=== PATIENT | female | born 1950 | race Caucasian/White ===

== ENCOUNTER 2018-02-08 09:05 | Emergency (ER) | payer MEDICARE, BC ==
--- OUTSIDE RECORDS SUMMARY | 2018-02-08 09:27 | XMS REPORT ---
:1950 External Reference #:[id number] Author Organization [employer] Address [address] [place] [address] [place] [address] Phone [phone] Care Team Providers Name Role Phone Froy CASI Victor Primary Care Physician Unavailable Payers Type Date Identification Numbers Payment Provider Subscriber Medicare Primary Policy Number: [id number] Medicare Christopher Matias PayID: [id number] [address] [place] [address] Medigap Part B Effective: 2016 Policy Number: BS Facets Christopher Matias [id number] PayID: [id number] [address] [address] ARIEL Barrera [address] Medigap Part B Effective: 2014 Policy Number: BS Facets Christopher Matias [id number] Expires: 2015 PayID: [id number] [address] [address] ARIEL Barrera [address] Medigap Part B Effective: 2004 Policy Number: BS Of [place] Christopher Matias [id number] Expires: 2011 Group Number: [id number] [address] [address] Group Name: [id number] ARIEL Barrera [id number] PayID: [id number] Problems Date Description Provider Status Onset: 11/28/2011 Chest pain Watson Jenkins M.D. Active Onset: 11/28/2011 Electrocardiogram abnormal Watson Jenkins M.D. Active Onset: 11/28/2011 Benign essential hypertension Watson Jenkins M.D. Active Onset: 11/28/2011 Coronary atherosclerosis Watson Jenkins M.D. Active Onset: 09/10/2012 Prinzmetal angina Watson Jenkins M.D. Active Onset: 09/10/2012 Essential hypertension Watson Jenkins M.D. Active Onset: 09/10/2012 Left bundle branch block Watson Jenkins M.D. Active Onset: 01/11/2013 Mitral valve disorder Watson Jenkins M.D. Active Onset: 07/05/2013 Sinus node dysfunction Watson Jenkins M.D. Active Onset: 07/05/2013 Malaise and fatigue Watson Jenkins M.D. Active Onset: 07/05/2013 Aortic valve disorder Watson Jenkins M.D. Active Onset: 02/03/2015 Osteoarthritis of knee Nola Rolle M.D. Active Onset: 10/25/2015 Localized, primary osteoarthritis Nola Rolle M.D. Active Onset: 12/01/2015 Arthroplasty of knee Nola Rolle M.D. Active Family History Date Family Member(s) Problem(s) Comments : (age 66 Father due to OK 1st OK at 58, second Years) OK 66 yo Onset: (age 58 Father OK 1st Years) Mother Chronic Obstructive Pulmonary Disease (COPD) : (age 83 Mother due to COPD Years) Mother Hypertension Children 1 son, 1 daughter alive and well Siblings 3 brothers, 1 sister First Brother Atrial Fibrillation ablation Social History Type Date Description Comments Marital Status 3 Times Lives With Spouse Occupation Retired Occupation Nurse Cigarette Use Never Smoked Cigarettes ETOH Use Rarely consumes alcohol Smoking Patient has never smoked Recreational Drug Use Denies Drug Use Daily Caffeine 2 diet pepsi daily Exercise Type/Frequency Exercises regularly pool exercise Allergies, Adverse Reactions, Alerts Date Description Reaction Status Severity Comments 11/28/2011 Doxepin active hallucinations and nightmares 11/28/2011 contrast dye hives, trouble active IVP 21 yo. breathing 12/27/2015 Tramadol active Medications Medication Date Status Form Strength Qnty SIG Indications Ordering Provider Irbesartan 01/28 Active Tablets 75mg 30tab Take 1 tab Desi S. /2018 s by mouth Julio, daily N.P. Advair HFA 12/03 Active Aerosol 230-21mcg 16gm 2 puffs by R06.2 Desi S. /2018 /Act mouth Foster, twice N.P. daily Fluticasone 11/21 Active Suspension 50mcg/Act 1unit 2 sprays Desi S. Propionate Nasal s per Foster, [place] 24- Hour nostril N.P. daily Ranitidine HCL 07/26 Active Capsules 150mg 30cap 1 tab by K21.9 Rachele s mouth bid MD Patrh Celexa 12/16 Active Tablets 10mg 1 by mouth every day Pramipexole 12/16 Active Tablets 1mg take 1.5 Unknown Dihydrochloride tablet by mouth 2 hrs before bedtime Amoxicillin 10/02 Active Tablets 500mg 4tabs take 4 tabs 1 F. hour prior Mauser, to dental M.DAlan procedure/ appointmen t. Aspir-81 03/[address] 81mg 1 by mouth Watson every day F. PM Pam Jenkins Furosemide 01/24 Active Tablets 20mg 90tab 1 by mouth I48.91 s as needed F. Pam Jenkins Metoprolol 10/12 Active Tablets ER 25mg 90tab 1 tab by Watson Succinate ER 24HR s mouth in F. the Mauser, morning M.D. Pradaxa 10/03 Active Capsules 150mg 180ca 1 cap by I48.91 ps mouth F. every 12 Mauser, hours M.D. Percocet 11/21 Active Tablets 5-325mg 60tab 1 -2 tabs Z09 s every 12 Adiel, hours as M.D. needed pain Crestor 05/03 Active Tablets 10mg 90tab 1 by mouth Desi S. /2013 s every day Julio, (take at N.P. hs) Levothyroxine 06/03 Active Tablets 100mcg 1 po qd Am Other Ordering Provider Ropinirole HCL Active Tablets 1mg 1 tablet Unknown /0000 for leg pains ( taken additional 1 mg at night if needed) Ativan 00 Active Tablets 1mg 90tab 1 tablet Unknown /0000 s tid prn Metformin HCL Active Tablets 500mg 60tab 1 tablet s by mouth bid Vitamin D Active Capsules 1000Unit 30cap 1 cap po s qd Am Multivitamins Active Tablets 100.0 1 po qd 0tabs Fish Oil Active Capsules 1000mg 1 po bid Proventil HFA Active Aerosol 108(90Bas 2 puffs by e) mouth mcg/Act every 4 hours ( taken as needed) Etodolac Active Tablets 400mg tid/prn back pain Tizanidine HCL Active Capsules 4mg 1 by mouth tid prn Irbesartan 12/09 Hx Tablets 150mg 90tab 1 po hs I1 s F. - robert, 01/28.D. Advair HFA 11/17 Hx Aerosol 230-21mcg 16gm R06.2 Desi S. /Act Julio - N.PAlan 12/03 Diovan 01/07 Hx Tablets 80mg 90tab 1 by mouth I1 s once a day F. - robert, 12/09.D Diovan 12/17 Hx Tablets 40mg 30tab 1 by mouth I1 s every day F. - , 01/07. Vitamin C 12/16 Hx Capsules 500mg 1 by mouth every day - 05/28 Valsartan 04/22 Hx Tablets 40mg 30tab /2 tablet I1 s by mouth F. - every day emerald, 06/07 (decreased .D. 05/21/16) Lisinopril 04/08 Hx Tablets 5mg 30tab 1 by mouth s every day F. - robert, 04/22.D Nitro-Dur 12/26 Hx Patches 0.2mg/HR 30uni 1 patch R06.02 24HR ts every day F. - on in the Mauser, 01/31 morning, .D off at night Tramadol HCL 11/14 Hx Tablets 50mg 30tab take one s tab by Mckenna, - mouth up M.D. 02/14 to times a day as needed for pain Digoxin 10/18 Hx Tablets 125mcg 180ta 1 by mouth I48.91 bs every day F. - (ghulam Jenkins, 07/2904/15/16) M.D. /2016 Furosemide 10/18 Hx Tablets 20mg 30tab 1 tab in I48.91 s morning F. - prn Gregory, 01/24 M.D. Cardizem CD 10/03 Hx Caps ER 120mg 30cap 1 by mouth R07.9 24HR s once a day F. - Gregory, 10/18 M.D. Advair Diskus 08/30 Hx Aerosol 500-50mcg inhale 1 /Dose dose by F. - mouth Gregory, 01/27 twice a M.D. day ( taken as needed ) Amlodipine 08/30 Hx Tablets 2.5mg 180ta 2 by mouth Watson Reed bs every day F. - Gregory, 10/03 M.D. Cyclobenzaprine 01/23 Hx Tablets 10mg 40tab 1 tablet 715.96 Nola HCL s by mouth Aquilino, - q8 hours M.D. 07/20 as needed /2015 muscle spasms Percocet 09/12 Hx Tablets 5-325mg 80tab 1-2 tabs Nola s by mouth Aquilino, - q6 as M.D. 11/21 needed pain Percocet 08/01 Hx Tablets 5-325mg 80tab 1-2 tabs Nola /2014 s by mouth Aquilino, - q8 as M.D. 07/20 needed pain Valium 07/25 Hx Tablets 2mg 45tab 1 tablet Nola s po tid prn Aquilino, - muscle M.D. 04/11 spasms /2014 Valium 07/21 Hx Tablets 2mg 30tab 1 tab po Nola s tid prn Aquilino, - muscle M.D. 07/21 spasm /2014 Amlodipine 07/20 Hx Tablets 2.5mg 90tab 1 by mouth Watson Bes s every day F. - Mauser, 08/30 M.D. Cipro 07/05 Hx Tablets 500mg 10tab 1 tab by s mouth Aquilino, - daily x 5 M.D. Coumadin 06/30 Hx Tablets 2mg 90tab 1-3 tab by s mouth as Aquilino, - directed M.D. 07/20 at 5pm daily Colace 06/30 Hx Capsules 100mg 60cap 1 tab by s mouth Aquilino, - twice a M.D. 07/20 day needed constipati on Percocet 02/28 Hx Tablets 5-325mg 120ta 1-2 tabs bs by mouth Aquilino, - q4-6h as M.D. 08/01 needed pain Nitrostat 10/29 Hx Tablets Sub 0.3mg 25tab one sl s q5min up F. - to 3 doses Maemerald, 01/06 as needed M.D. replace every 12 months ( No Rx left ) Crestor 10/25 Hx Tablets 5mg 100ta 1 by mouth bs every day F. - Gregory, 05/03.D. Diclofenac Sodium 10/04 Hx Tablets ER 100mg 90tab 1 by mouth Bruce 24HR s every day Young, - M.D. 06/12 Lipitor 07/16 Hx Tablets 10mg 100ta 1 po qhs bs F. - Mauser, 08/12 M.D. Metoprolol 07/16 Hx Tablets ER 25mg 180ta /2 po Watson Succinate 24HR bs qam F. - (decreased Mauser, 10/1210/06/15, M.D. then on 10/13/15, take every other day, discontinu e on 10/20/15) Celebrex 06/03 Hx Capsules 200mg 90cap 1 po bid s prn F. - Marobertr, 07/01 M.D. Metoprolol 06/03 Hx Tablets ER 25mg 60tab 1/2 po q Watson Succinate 24HR s p.m. F. - Mauser, 07/02 M.D. Metoprolol 06/02 Hx Tablets ER 25mg 1 po bid Watson Succinate 24HR F. - Mauser, 06/03 M.D. Diclofenac Sodium 06/01 Hx Tablets ER 100mg 90tab 1 by mouth Bruce 24HR s every day Jessica Junior M.D. 09/30 [place] 03/30 Hx Tablets 5-325mg 60tab take 1 tab s by mouth Vernon - twice a M.D. 06/12 day needed pain Naproxen DR 01/[address] 500mg 60tab po bid s with food Ordering - Provider 05/26 Prilosec 01/[address] 20mg 90cap 1 po qd s Ordering - Provider 05/26 Naproxen 11/27 Hx Tablets 500mg 60tab 1 po bid s prn Jessica Junior M.D. 07/01 Tizanidine HCL 11/27 Hx Tablets 4mg 30tab take 1 s tablet by Vernon - mouth two M.D. 06/12 times day if needed for spasms [place] 10/29 Hx Tablets 5-325mg 60tab 1-2 po tid s prn pain Jessica Junior M.D. 04/27 Cardizem CD 09/23 Hx Caps ER 240mg 100ca 1 by mouth 24HR ps every day F. - Mauser, 04/12 M.D. Metoprolol 09/10 Hx Tablets 25mg 200ta 1/2 tablet Watson Tartrate bs po bid F. - Mauser, 06/03 M.D. Nitroglycerin 07/13 Hx Tablets Sub 0.4mg 25tab 1 sl s q5mins x3 F. - prn for Mauser, 05/26 chest pain M.D. Metoprolol 07/13 Hx Tablets 25mg 100ta 1 po qd Watson Tartrate bs F. - Mauser, 09/10 M.D. Amlodipine 07/13 Hx Tablets 2.5mg 100ta 2 po qd Watson Besylate delores Jenkins, 09/23 M.D. Metoprolol 06/01 Hx Tablets 25mg 100ta 1 po bid Watson Tartrate delores Jenkins, 07/13 M.D. Amlodipine 06/01 Hx Tablets 2.5mg 200ta 1 bid Watson Besylate delores Jenkins, 07/13 M.D. Imdur 06/01 Hx Tablets ER 30mg 30tab 1 po qd Watson 24HR emerald Jenkins, 09/10 M.D. Amlodipine 12/29 Hx Tablets 2.5mg 30tab 1 po qd Lalitha Besylate emerald Dawson - , N.P. 06/01 Aldactone 11/28 Hx Tablets 25mg 30tab 1/2 po qd Watson emerald Jenkins, 12/26 M.D. Potassium 11/28 Hx Tablets ER 20Meq 60tab 1 po qd Watson Chloride emerald Jenkins, 12/24 M.D. Potassium Hx Tablets ER 20Meq 30tab 2 po Watson Chloride ER / s 7.5.12 and F. - 2 tabs po Mauser, 11/28 again 4 M.D. /2011 hours later and then 2 po qd Chlorthalidone Hx Tablets 25mg 30tab 1 po qd Unknown /0000 s - 11/28 Niaspan Hx Tablets ER 500mg 30tab 1 po qhs Unknown /0000 s - 07/13 Lamictal / Hx Tablets 100mg 30tab 1 po qhs Unknown /0000 s - 09/10 Cyclobenzaprine Hx Tablets 10mg 1/2 to 1 Unknown HCL /0000 tablet q8h - prn muscle 09/10 pain Levothyroxine Hx Tablets 75mcg 90tab 1 po qd Unknown Sodium /0000 s - 06/03 Etodolac Hx Tablets 400mg 1 tab tid Unknown /0000 prn pain - and 01/11 inflammati on Omeprazole Hx Capsules DR 20mg 30cap 1 po qd Unknown /0000 s - 07/13 Aspirin Hx Tablets 81mg 100ta 1 tablet Unknown /0000 bs by mouth - daily at 10/03 bedtime Metoprolol Hx Tablets 50mg 60tab 1 po bid Unknown Tartrate /0000 s - 06/01 Lipitor Hx Tablets 40mg 90tab 1 po hs Unknown /0000 s - 07/16 Clobetasol Hx Cream 0.05% 60gm apply to Unknown Propionate E / rash 2 x - per day 07/13 Estrace Hx Tablets 1mg M-W-F Unknown /0000 - 06/01 Hydrochlorothiazi Hx Capsules 12.5mg 90cap 1 po qd Unknown de /0000 s - 12/29 Zantac Hx Tablets 150mg 60tab 1 by mouth Unknown /0000 s every day - 04/[address] 40mg 30tab bid 30 Unknown Sodium /0000 s minutes - prior to 01/11 Calcium 600 Hx Tablets 600mg 60tab 1 po bid Unknown /0000 s - 12/16 Metoprolol Hx Tablets 25mg 60tab 1/2 tab po Unknown Tartrate /0000 s qPM - 07/16 Citalopram Hx Tablets 20mg 30tab 1 by mouth Unknown Hydrobromide /0000 s every day - 04/11 Asmanex Hx Aerosol 220mcg/Ac 1unit inhale 1 Unknown /0000 t s puff daily - 08/29 Albuterol Sulfate Hx 2 puffs Unknown Inhaler /0000 four times - a day as 10/02 Zoloft 00 Hx Tablets 50mg 1 by mouth Unknown /0000 every day - 10/[address] 20mg 1/2 by Unknown /0000 mouth - every day 10/02 Prednisone / Hx Tablets 50mg 1 po daily Unknown /0000 x5 days - 08/29 Ventolin HFA Hx Aerosol 108(90Bas 2 puffs by Unknown /0000 e) mouth four - mcg/Act times a 10/11 day needed Pulmicort Hx Aerosol 180mcg/Ac 2 puffs Unknown Flexhaler /0000 t twice - daily 10/02 Advair Diskus /00 Hx 1 puffs Unknown /0000 daily - 08/[address] 20mg tapering Unknown /0000 - 01/27 Citalopram Hx Tablets 20mg 1 by mouth Unknown Hydrobromide /0000 every day - (not 02/28 currently taking) Wellbutrin XL Hx Tablets ER 150mg 1 by mouth Unknown /0000 24HR every day - Am 11/16 Montelukast Hx Tablets 10mg 1 by mouth Unknown Sodium /0000 every day - ( take at 11/16) Oxycodone-Acetami Hx Tablets 5-325mg 1-2 by Unknown nophen /0000 mouth - every 4-6 10/11 hours needed for pain. Tizanidine HCL Hx Capsules 4mg 1 three Unknown /0000 times a - day as 02/13 needed Estrace Hx Cream 0.1mg/GM 1 gm Unknown /0000 intravagin - ally 3x 02/13 weekly prn Lasix Hx Tablets 20mg 1 by mouth Unknown /0000 prn - 10/31 Coumadin Hx 2mg as Watson /0000 eloise Jenkins, 04/22 M.DAlan Magnesium Oxide Hx Tablets 500mg take 1 Unknown /0000 tablet by - mouth a 04/15 day in the evening Celexa Hx Tablets 40mg 1/2 tablet Unknown /0000 by mouth - every day 12/17 ( change decrease 1 tablet to 1/2 tablet per Shawnti Storm) Potassium 00 Hx Capsules ER 10Meq 1 by mouth Unknown Chloride ER /0000 once a day - prn, pt to 12/16 take days she takes furosemide medication Zantac 00 Hx 1 tab by Unknown /0000 mouth - every day 01/27 as needed Medications Administered in Office Medication Date Status Form Strength Qnty SIG Indications Ordering Provider Depomedrol Administered Injection Nola 40MG 016 Pam Rolle Depomedrol Administered Injection Nola 80MG 015 Pam Rolle Depomedrol Administered Injection Nola 80MG 015 Pam Rolle Depomedrol Administered Injection Bruce 80MG 014 Pam Junior Synvisc Or Administered Injection Bruce Synvisc-One 014 Pam Junior Injection 1 MG Synvisc Or Administered Injection Mora Synvisc-One 014 Mina, Injection 1 MG RPA-C Synvisc Or Administered Injection Radha Synvisc-One 014 Julia, Injection 1 MG RPA-C Depomedrol Administered Injection Bruce 80MG 014 Pam Junior Depomedrol Administered Injection Bruce 80MG 014 Pam Junior Depomedrol Administered Injection Bruce 80MG 013 Pam Junior Depomedrol Administered Injection Crystal 80MG 013 Odalys, RPA-C Depomedrol Administered Injection Bruce 80MG Katarina Junior M.D. Vital Signs Date Vital Result Comment 01/28/2018 Height 66 inches 5'6" Weight 206.25 lb no shoes Heart Rate 68 /min BP Systolic 136 mmHg left arm BP Diastolic 78 mmHg left arm BMI (Body Mass Index) 33.3 kg/m2 Ejection Fraction 55-60% 09/15/2017 Echocardiogram 11/17/2017 Height 66 inches 5'6" Weight 212.38 lb Heart Rate 60 /min BP Systolic Sitting 136 mmHg Lue large cuff BP Diastolic Sitting 90 mmHg Lue large cuff Respiratory Rate 16 /min O2 % BldC Oximetry 96 % BMI (Body Mass Index) 34.3 kg/m2 08/29/2017 Height 66 inches 5'6" Weight 211.38 lb Heart Rate 58 /min BP Systolic Sitting 126 mmHg Lue large cuff BP Diastolic Sitting 70 mmHg Lue large cuff Respiratory Rate 14 /min O2 % BldC Oximetry 98 % On Ra BMI (Body Mass Index) 34.1 kg/m2 07/26/2017 Height 66 inches 5'6" Weight 208.00 lb w/o shoes Heart Rate 76 /min reg BP Systolic Sitting 120 mmHg Lue BP Diastolic Sitting 80 mmHg Lue Respiratory Rate 16 /min O2 % BldC Oximetry 91 % on Ra BMI (Body Mass Index) 33.6 kg/m2 Neck Circumference in inches 15 07/21/2017 Height 66 inches 5'6" Weight 207.00 lb Heart Rate 56 /min BP Systolic Sitting 114 mmHg LA, reg cuff BP Diastolic Sitting 70 mmHg LA, reg cuff BMI (Body Mass Index) 33.4 kg/m2 Ejection Fraction 50%-55% echo 09/25/16 01/07/2017 Height 66 inches 5'6" Weight 199.00 lb w/shoes Heart Rate 64 /min 65 home cuff BP Systolic Sitting 154 mmHg LA reg cuff BP Diastolic Sitting 80 mmHg LA reg cuff BP Systolic Standing 150 mmHg home arm cuff BP Diastolic Standing 71 mmHg home arm cuff BP Systolic Lying Down 156 mmHg home wrist cuff BP Diastolic Lying Down 86 mmHg home wrist cuff BMI (Body Mass Index) 32.1 kg/m2 Ejection Fraction 50-55% Echo 09/25/16 12/17/2016 Height 66 inches 5'6" Weight 199.00 lb with shoes Heart Rate 82 /min BP Systolic Sitting 140 mmHg Lue reg cuff BP Diastolic Sitting 90 mmHg Lue reg cuff Respiratory Rate 17 /min BMI (Body Mass Index) 32.1 kg/m2 Ejection Fraction 50% - 55% echo 09/25/16 09/19/2016 Height 66 inches 5'6" Weight 198.00 lb without shoes Heart Rate 60 /min BP Systolic Sitting 120 mmHg Lue reg cuff BP Diastolic Sitting 72 mmHg Lue reg cuff BP Systolic Standing 114 mmHg Lue reg cuff BP Diastolic Standing 70 mmHg Lue reg cuff Respiratory Rate 16 /min BMI (Body Mass Index) 32.0 kg/m2 Ejection Fraction 50-55% date 03/28/2016 ECHO 07/01/2016 Height 62 inches 5'2" Weight 195.00 lb w/shoes Heart Rate 82 /min BP Systolic Sitting 160 mmHg LA reg cuff BP Diastolic Sitting 90 mmHg LA reg cuff BP Systolic Standing 146 mmHg la repeat sitting BP Diastolic Standing 85 mmHg la repeat sitting BMI (Body Mass Index) 35.7 kg/m2 Ejection Fraction 50-55% Echo 03/28/16 04/22/2016 Height 62 inches 5'2" Weight 190.00 lb w/o shoes Heart Rate 88 /min BP Systolic Sitting 138 mmHg LA lg cuff BP Diastolic Sitting 80 mmHg LA lg cuff BMI (Body Mass Index) 34.7 kg/m2 Ejection Fraction 50-55% Echo 03/28/16 04/05/2016 Heart Rate 78 /min BP Systolic 171 mmHg LA wrist home unit BP Diastolic 97 mmHg LA wrist home unit BP Systolic Sitting 166 mmHg LA, large home unit BP Diastolic Sitting 86 mmHg LA, large home unit BP Systolic Lying Down 162 mmHg LA, large BP Diastolic Lying Down 82 mmHg LA, large 04/03/2016 Height 66 inches 5'6" Weight 196.00 lb w/o shoes Heart Rate 82 /min BP Systolic Sitting 152 mmHg LA reg cuff BP Diastolic Sitting 88 mmHg LA reg cuff BMI (Body Mass Index) 31.6 kg/m2 Ejection Fraction 50% - 55% echo 03/28/16 03/06/2016 Height 66 inches 5'6" Weight 199.44 lb w/o shoes Heart Rate 88 /min BP Systolic Sitting 140 mmHg LA lg cuff BP Diastolic Sitting 84 mmHg LA lg cuff BMI (Body Mass Index) 32.2 kg/m2 Ejection Fraction 30-35% Echo 03/01/16 03/01/2016 Height 66 inches 5'6" Weight 200.00 lb Heart Rate 120 /min Apical BP Systolic Sitting 162 mmHg LA, reg BP Diastolic Sitting 100 mmHg LA, reg Body Temperature 99.3 F O2 % BldC Oximetry 97 % room air BMI (Body Mass Index) 32.3 kg/m2 02/15/2016 Height 66 inches 5'6" Weight 202.00 lb w/shoes Heart Rate 66 /min BP Systolic Sitting 130 mmHg LA lg cuff BP Diastolic Sitting 88 mmHg LA lg cuff BMI (Body Mass Index) 32.6 kg/m2 Ejection Fraction 50-55% Nikos 01/07/16 12/27/2015 Height 66 inches 5'6" Weight 207.00 lb with shoes Heart Rate 60 /min BP Systolic Sitting 130 mmHg LA lrg cuff BP Diastolic Sitting 70 mmHg LA lrg cuff BMI (Body Mass Index) 33.4 kg/m2 Ejection Fraction 55% - 60% echo 10/05/15 12/01/2015 Height 66 inches 5'6" Weight 206.00 lb Heart Rate 64 /min Pain Level 5 BMI (Body Mass Index) 33.2 kg/m2 11/15/2015 Height 66 inches 5'6" Weight 206.00 lb Heart Rate 64 /min BP Systolic 131 mmHg BP Diastolic 77 mmHg BMI (Body Mass Index) 33.2 kg/m2 11/13/2015 Height 66 inches 5'6" Weight 206.00 lb Heart Rate 76 /min BP Systolic Sitting 146 mmHg BP Diastolic Sitting 80 mmHg Respiratory Rate 18 /min Pain Level 7 BMI (Body Mass Index) 33.2 kg/m2 11/02/2015 Height 66 inches 5'6" Weight 206.25 lb w/o shoes Heart Rate 72 /min BP Systolic Sitting 138 mmHg LA reg cuff BP Diastolic Sitting 82 mmHg LA reg cuff BMI (Body Mass Index) 33.3 kg/m2 Ejection Fraction 55-60% Echo 10/05/15 10/25/2015 Height 66 inches 5'6" Weight 216.00 lb Pain Level 8 BMI (Body Mass Index) 34.9 kg/m2 10/19/2015 Height 66 inches 5'6" Weight 216.75 lb with out shoes Heart Rate 94 /min BP Systolic 128 mmHg LA lrg cuff BP Diastolic 86 mmHg LA lrg cuff O2 % BldC Oximetry 96 % with 100 feet walking HR 107 bpm and O2 sat 93% BMI (Body Mass Index) 35.0 kg/m2 Ejection Fraction 55-60% echo 10/05/15 10/13/2015 Height 66 inches 5'6" Heart Rate 76 /min BP Systolic Sitting 172 mmHg LA< reg BP Diastolic Sitting 90 mmHg LA< reg BP Systolic Standing 180 mmHg LA< reg BP Diastolic Standing 100 mmHg LA< reg 10/04/2015 Height 66 inches 5'6" Weight 210.25 lb with out shoes Heart Rate 84 /min BP Systolic 126 mmHg LA lrg cuff BP Diastolic 70 mmHg LA lrg cuff BMI (Body Mass Index) 33.9 kg/m2 Ejection Fraction 50% 05/04/15 echo 08/31/2015 Height 66 inches 5'6" Weight 210.00 lb Heart Rate 80 /min BP Systolic Sitting 128 mmHg LA, regular BP Diastolic Sitting 80 mmHg LA, regular BMI (Body Mass Index) 33.9 kg/m2 Ejection Fraction 50% stress test 05/04/15 07/21/2015 Height 66 inches 5'6" Weight 200.00 lb Pain Level 0 BMI (Body Mass Index) 32.3 kg/m2 04/12/2015 Height 66 inches 5'6" Weight 200.00 lb Heart Rate 66 /min BP Systolic Sitting 124 mmHg LA, reg BP Diastolic Sitting 64 mmHg LA, reg BMI (Body Mass Index) 32.3 kg/m2 Ejection Fraction 50%-55% echo 05/31/14 02/03/2015 Height 66 inches 5'6" Weight 197.00 lb Pain Level 6 BMI (Body Mass Index) 31.8 kg/m2 01/23/2015 Height 66 inches 5'6" Weight 197.00 lb Pain Level 3 BMI (Body Mass Index) 31.8 kg/m2 11/21/2014 Height 66 inches 5'6" Weight 197.00 lb Pain Level 4 BMI (Body Mass Index) 31.8 kg/m2 10/10/2014 Height 66 inches 5'6" Weight 197.00 lb Heart Rate 88 /min BP Systolic 129 mmHg BP Diastolic 84 mmHg Pain Level 5 BMI (Body Mass Index) 31.8 kg/m2 09/05/2014 Height 66 inches 5'6" Weight 197.00 lb Heart Rate 72 /min BP Systolic 137 mmHg BP Diastolic 86 mmHg Pain Level 5 BMI (Body Mass Index) 31.8 kg/m2 08/15/2014 Height 66 inches 5'6" Weight 197.00 lb Pain Level 5 BMI (Body Mass Index) 31.8 kg/m2 08/01/2014 Height 66 inches 5'6" Weight 197.00 lb Body Temperature 96.2 F BMI (Body Mass Index) 31.8 kg/m2 07/25/2014 Height 66 inches 5'6" Weight 197.00 lb Body Temperature 97.9 F BMI (Body Mass Index) 31.8 kg/m2 06/30/2014 Height 66 inches 5'6" Weight 197.00 lb Heart Rate 70 /min BP Systolic 159 mmHg BP Diastolic 85 mmHg BMI (Body Mass Index) 31.8 kg/m2 06/13/2014 Height 66 inches 5'6" Weight 197.00 lb Heart Rate 57 /min BP Systolic 142 mmHg BP Diastolic 76 mmHg BMI (Body Mass Index) 31.8 kg/m2 05/12/2014 Height 66 inches 5'6" Heart Rate 67 /min BP Systolic 158 mmHg BP Diastolic 82 mmHg 05/11/2014 Height 66 inches 5'6" Weight 202.00 lb Heart Rate 68 /min BP Systolic Sitting 138 mmHg LA, reg BP Diastolic Sitting 84 mmHg LA, reg BMI (Body Mass Index) 32.6 kg/m2 04/28/2014 Height 66 inches 5'6" Weight 197.00 lb Heart Rate 72 /min BMI (Body Mass Index) 31.8 kg/m2 03/28/2014 Height 66 inches 5'6" Weight 197.00 lb Heart Rate 72 /min BP Systolic 122 mmHg BP Diastolic 75 mmHg BMI (Body Mass Index) 31.8 kg/m2 02/28/2014 Height 66 inches 5'6" Weight 197.00 lb Heart Rate 71 /min BP Systolic 150 mmHg BP Diastolic 90 mmHg BMI (Body Mass Index) 31.8 kg/m2 02/17/2014 Height 66 inches 5'6" Weight 200.00 lb Heart Rate 71 /min BMI (Body Mass Index) 32.3 kg/m2 02/10/2014 Height 66 inches 5'6" Heart Rate 71 /min BP Systolic 153 mmHg BP Diastolic 87 mmHg 02/03/2014 Height 66 inches 5'6" Weight 200.00 lb Heart Rate 72 /min BP Systolic 142 mmHg BP Diastolic 84 mmHg BMI (Body Mass Index) 32.3 kg/m2 01/25/2014 Height 65 inches 5'5" Heart Rate 66 /min BP Systolic 129 mmHg BP Diastolic 76 mmHg 10/29/2013 Height 65 inches 5'5" Weight 197.00 lb Heart Rate 68 /min BP Systolic Sitting 124 mmHg BP Diastolic Sitting 68 mmHg Respiratory Rate 14 /min BMI (Body Mass Index) 32.8 kg/m2 09/09/2013 Height 65 inches 5'5" Weight 199.00 lb Heart Rate 72 /min BP Systolic 130 mmHg BP Diastolic 72 mmHg BMI (Body Mass Index) 33.1 kg/m2 07/05/2013 Height 65 inches 5'5" Weight 202.75 lb Heart Rate 62 /min BP Systolic Sitting 140 mmHg left arm, reg cuff BP Diastolic Sitting 80 mmHg left arm, reg cuff BP Systolic Standing 132 mmHg left arm, reg cuff BP Diastolic Standing 78 mmHg left arm, reg cuff Respiratory Rate 14 /min BMI (Body Mass Index) 33.7 kg/m2 06/03/2013 Height 65 inches 5'5" Weight 202.00 lb Heart Rate 53 /min BP Systolic 123 mmHg BP Diastolic 74 mmHg BMI (Body Mass Index) 33.6 kg/m2 06/03/2013 Height 65 inches 5'5" Weight 202.00 lb Heart Rate 56 /min BP Systolic 135 mmHg repeat 123/74 BP Diastolic 74 mmHg repeat 123/74 BMI (Body Mass Index) 33.6 kg/m2 01/11/2013 Height 65 inches 5'5" Weight 207.00 lb Heart Rate 65 /min BP Systolic 140 mmHg BP Diastolic 80 mmHg Respiratory Rate 16 /min BMI (Body Mass Index) 34.4 kg/m2 09/17/2012 Height 65 inches 5'5" Weight 207.00 lb Heart Rate 88 /min BP Systolic 130 mmHg BP Diastolic 76 mmHg BMI (Body Mass Index) 34.4 kg/m2 09/10/2012 Height 65 inches 5'5" Weight 205.00 lb Heart Rate 100 /min BP Systolic Sitting 160 mmHg BP Diastolic Sitting 82 mmHg Respiratory Rate 16 /min BMI (Body Mass Index) 34.1 kg/m2 07/13/2012 Height 65 inches 5'5" Weight 215.00 lb Heart Rate 60 /min BP Systolic 112 mmHg BP Diastolic 62 mmHg BMI (Body Mass Index) 35.8 kg/m2 06/01/2012 Height 65 inches 5'5" Weight 212.00 lb Heart Rate 60 /min BP Systolic Sitting 126 mmHg BP Diastolic Sitting 66 mmHg Respiratory Rate 16 /min BMI (Body Mass Index) 35.3 kg/m2 12/30/2011 Height 65 inches 5'5" Weight 210.44 lb Heart Rate 68 /min BP Systolic Sitting 130 mmHg BP Diastolic Sitting 86 mmHg BMI (Body Mass Index) 35.0 kg/m2 11/28/2011 Height 65 inches 5'5" Weight 208.00 lb Heart Rate 65 /min BP Systolic Sitting 130 mmHg right arm, left arm 134/84 BP Diastolic Sitting 80 mmHg right arm, left arm 134/84 BMI (Body Mass Index) 34.6 kg/m2 Results Test Date Test Result H/L Range Note Laboratory test finding 09/04/2017 TSH (Thyroid Stim 2.69 mcIU/mL 0.34- 5.60 1, 2 Horm) Hepatitis C Antibody Nonreactive Nonreactive 1 Hemoglobin A1c 6.0 % High 4.0-5.6 1, 3 Hemoglobin/Hematocrit 09/04/2017 Hemoglobin 13.3 g/dL 12.0-16.0 Hematocrit 39 % 35-47 Iron & Iron Binding Capacity 09/04/2017 Iron 81 g/dL 50-212 Unsaturated Iron Binding 471 g/dL Total Iron Binding Capacity 552 g/dL High 250-450 Transferrin 394 mg/dL High 203-362 % Iron Saturation 15 % 15-55 CBC Auto Diff 09/04/2017 White Blood Count 6.3 10^3/uL 3.5-10.8 Red Blood Count 4.58 10^6/uL 4.0-5.4 Hemoglobin 13.4 g/dL 12.0-16.0 Hematocrit 40 % 35-47 Mean Corpuscular Volume 87 fL 80-97 Mean Corpuscular Hemoglobin 29 pg 27-31 Mean Corpuscular HGB Conc 34 g/dL 31-36 Red Cell Distribution Width 15 % 10.5-15 Platelet Count 273 10^3/uL 150-450 Mean Platelet Volume 7.8 um3 7.4-10.4 Abs Neutrophils 4.0 10^3/uL 1.5-7.7 Abs Lymphocytes 1.6 10^3/uL 1.0-4.8 Abs Monocytes 0.4 10^3/uL 0-0.8 Abs Eosinophils 0.2 10^3/uL 0-0.6 Abs Basophils 0 10^3/uL 0-0.2 Abs Nucleated RBC 0 10^3/uL Granulocyte % 63.3 % 38-83 Lymphocyte % 25.4 % 25-47 Monocyte % 6.9 % 0-7 Eosinophil % 3.7 % 0-6 Basophil % 0.7 % 0-2 Nucleated Red Blood Cells % 0 Laboratory test finding 09/04/2017 B-Type Natriuretic 166 pg/mL High 4 Peptide BNP Lipid Panel - [facility] 09/04/2017 Creatine Kinase 40 U/L 10-223 5 Comp Metabolic Panel 09/04/2017 Sodium 141 mmol/L 139-145 Potassium 4.3 mmol/L 3.5-5.0 Chloride 102 mmol/L 101-111 Co2 Carbon Dioxide 30 mmol/L 22-32 Anion Gap 9 mmol/L 2-11 Glucose 103 mg/dL High 70-100 Blood Urea Nitrogen 16 mg/dL 6-24 Creatinine 1.04 mg/dL High 0.51-0.95 BUN/Creatinine Ratio 15.4 8-20 Calcium 9.3 mg/dL 8.6-10.3 Total Protein 6.7 g/dL 6.4-8.9 Albumin 4.3 g/dL 3.2-5.2 Globulin 2.4 g/dL 2-4 Albumin/Globulin Ratio 1.8 1-3 Total Bilirubin 0.90 mg/dL 0.2-1.0 Alkaline Phosphatase 54 U/L 34-104 Alt 20 U/L 7-52 Ast 21 U/L 13-39 Egfr Non- 53.0 >60 Egfr 68.2 >60 6 Laboratory test finding 09/04/2017 Ferritin 27.6 ng/mL 11-307 Laboratory test finding 09/04/2017 Magnesium 1.9 mg/dL 1.9-2.7 7 Lipid Profile (Trig/Chol/HDL) 09/04/2017 Triglycerides 198 mg/dL 8 Cholesterol 188 mg/dL 9 HDL Cholesterol 60.5 mg/dL 10 LDL Cholesterol 88 mg/dL 11 CBC Auto Diff 01/02/2017 White Blood Count 7.2 10^3/uL 3.5-10.8 Red Blood Count 4.39 10^6/uL 4.0-5.4 Hemoglobin 12.6 g/dL 12.0-16.0 Hematocrit 39 % 35-47 Mean Corpuscular Volume 90 fL 80-97 Mean Corpuscular Hemoglobin 29 pg 27-31 Mean Corpuscular HGB Conc 32 g/dL 31-36 Red Cell Distribution Width 16 % High 10.5-15 Platelet Count 243 10^3/uL 150-450 Mean Platelet Volume 8 um3 7.4-10.4 Abs Neutrophils 4.9 10^3/uL 1.5-7.7 Abs Lymphocytes 1.5 10^3/uL 1.0-4.8 Abs Monocytes 0.6 10^3/uL 0-0.8 Abs Eosinophils 0.2 10^3/uL 0-0.6 Abs Basophils 0.1 10^3/uL 0-0.2 Abs Nucleated RBC 0 10^3/uL Granulocyte % 68.0 % 38-83 Lymphocyte % 21.1 % Low 25-47 Monocyte % 7.9 % 1-9 Eosinophil % 2.3 % 0-6 Basophil % 0.7 % 0-2 Nucleated Red Blood Cells % 0.1 Basic Metabolic Panel 01/02/2017 Sodium 139 mmol/L 133-145 Potassium 4.3 mmol/L 3.5-5.0 Chloride 103 mmol/L 101-111 Co2 Carbon Dioxide 27 mmol/L 22-32 Anion Gap 9 mmol/L 2-11 Glucose 109 mg/dL High 70-100 Blood Urea Nitrogen 14 mg/dL 6-24 Creatinine 0.82 mg/dL 0.51-0.95 BUN/Creatinine Ratio 17.1 8-20 Calcium 9.0 mg/dL 8.6-10.3 Egfr Non- 70.0 >60 Egfr 90.0 >60 12 Basic Metabolic Panel 01/02/2017 Sodium 139 mmol/L 133-145 Potassium 4.1 mmol/L 3.5-5.0 Chloride 100 mmol/L Low 101-111 Co2 Carbon Dioxide 32 mmol/L 22-32 Anion Gap 7 mmol/L 2-11 Glucose 99 mg/dL 70-100 Blood Urea Nitrogen 23 mg/dL 6-24 Creatinine 1.04 mg/dL High 0.51-0.95 BUN/Creatinine Ratio 22.1 High 8-20 Calcium 9.5 mg/dL 8.6-10.3 Egfr Non- 53.2 >60 Egfr 68.4 >60 13 CBC Auto Diff 01/02/2017 White Blood Count 6.5 10^3/uL 3.5-10.8 Red Blood Count 4.39 10^6/uL 4.0-5.4 Hemoglobin 13.1 g/dL 12.0-16.0 Hematocrit 39 % 35-47 Mean Corpuscular Volume 89 fL 80-97 Mean Corpuscular Hemoglobin 30 pg 27-31 Mean Corpuscular HGB Conc 34 g/dL 31-36 Red Cell Distribution Width 14 % 10.5-15 Platelet Count 240 10^3/uL 150-450 Mean Platelet Volume 8 um3 7.4-10.4 Abs Neutrophils 4.3 10^3/uL 1.5-7.7 Abs Lymphocytes 1.5 10^3/uL 1.0-4.8 Abs Monocytes 0.5 10^3/uL 0-0.8 Abs Eosinophils 0.1 10^3/uL 0-0.6 Abs Basophils 0 10^3/uL 0-0.2 Abs Nucleated RBC 0 10^3/uL Granulocyte % 66.5 % 38-83 Lymphocyte % 22.4 % Low 25-47 Monocyte % 8.2 % 1-9 Eosinophil % 2.2 % 0-6 Basophil % 0.7 % 0-2 Nucleated Red Blood Cells % 0 CBC Auto Diff 09/07/2016 White Blood Count 8.1 10^3/uL 3.5-10.8 Red Blood Count 4.45 10^6/uL 4.0-5.4 Hemoglobin 12.2 g/dL 12.0-16.0 Hematocrit 37 % 35-47 Mean Corpuscular Volume 84 fL 80-97 Mean Corpuscular Hemoglobin 27 pg 27-31 Mean Corpuscular HGB Conc 33 g/dL 31-36 Red Cell Distribution Width 15 % 10.5-15 Platelet Count 312 10^3/uL 150-450 Mean Platelet Volume 8 um3 7.4-10.4 Abs Neutrophils 5.4 10^3/uL 1.5-7.7 Abs Lymphocytes 1.6 10^3/uL 1.0-4.8 Abs Monocytes 0.6 10^3/uL 0-0.8 Abs Eosinophils 0.4 10^3/uL 0-0.6 Abs Basophils 0.1 10^3/uL 0-0.2 Abs Nucleated RBC 0 10^3/uL Granulocyte % 66.5 % 38-83 Lymphocyte % 20.2 % Low 25-47 Monocyte % 7.9 % 1-9 Eosinophil % 4.3 % 0-6 Basophil % 1.1 % 0-2 Nucleated Red Blood Cells % 0 Comp Metabolic Panel 09/07/2016 Sodium 137 mmol/L 133-145 Potassium 4.7 mmol/L 3.5-5.0 Chloride 101 mmol/L 101-111 Co2 Carbon Dioxide 31 mmol/L 22-32 Anion Gap 5 mmol/L 2-11 Glucose 114 mg/dL High 70-100 Blood Urea Nitrogen 17 mg/dL 6-24 Creatinine 0.98 mg/dL High 0.51-0.95 BUN/Creatinine Ratio 17.3 8-20 Calcium 9.7 mg/dL 8.6-10.3 Total Protein 6.8 g/dL 6.4-8.9 Albumin 4.2 g/dL 3.2-5.2 Globulin 2.6 g/dL 2-4 Albumin/Globulin Ratio 1.6 1-3 Total Bilirubin 0.70 mg/dL 0.2-1.0 Alkaline Phosphatase 74 U/L 34-104 Alt 18 U/L 7-52 Ast 18 U/L 13-39 Egfr Non- 57.0 >60 Egfr 73.3 >60 14 Lipid Profile (Trig/Chol/HDL) 09/07/2016 Triglycerides 180 mg/dL 15 Cholesterol 159 mg/dL 16 HDL Cholesterol 54.6 mg/dL 17 LDL Cholesterol 68 mg/dL 18 Laboratory test finding 09/07/2016 TSH (Thyroid Stim Horm) 2.17 mcIU/mL 0.34-5.60 Hemoglobin A1c (Glyco HGB) 6.4 % High Less than 6.0 19 Inr/Protime 04/22/2016 Inr 1.33 High 0.89-1.11 Lipid Panel - [facility] 04/12/2016 Creatine Kinase 63 U/L 10-223 20 Comp Metabolic Panel 04/12/2016 Sodium 136 mmol/L 133-145 Potassium 4.8 mmol/L 3.5-5.0 Chloride 101 mmol/L 101-111 Co2 Carbon Dioxide 28 mmol/L 22-32 Anion Gap 7 mmol/L 2-11 Glucose 118 mg/dL High 70-100 Blood Urea Nitrogen 19 mg/dL 6-24 Creatinine 0.87 mg/dL 0.51-0.95 BUN/Creatinine Ratio 21.8 High 8-20 Calcium 9.3 mg/dL 8.6-10.3 Total Protein 6.9 g/dL 6.4-8.9 Albumin 4.1 g/dL 3.2-5.2 Globulin 2.8 g/dL 2-4 Albumin/Globulin Ratio 1.5 1-3 Total Bilirubin 0.50 mg/dL 0.2-1.0 Alkaline Phosphatase 80 U/L 34-104 Alt 16 U/L 7-52 Ast 19 U/L 13-39 Egfr Non- 65.6 >60 Egfr 84.3 >60 21 Inr/Protime 04/12/2016 Inr 1.65 High 0.89-1.11 Laboratory test finding 04/12/2016 Magnesium 2.0 mg/dL 1.9-2.7 22 CBC Auto Diff 04/12/2016 White Blood Count 12.0 10^3/uL High 3.5-10.8 Red Blood Count 4.78 10^6/uL 4.0-5.4 Hemoglobin 12.1 g/dL 12.0-16.0 Hematocrit 38 % 35-47 Mean Corpuscular Volume 80 fL 80-97 Mean Corpuscular Hemoglobin 25 pg Low 27-31 Mean Corpuscular HGB Conc 32 g/dL 31-36 Red Cell Distribution Width 16 % High 10.5-15 Platelet Count 417 10^3/uL 150-450 Mean Platelet Volume 8 um3 7.4-10.4 Abs Neutrophils 8.7 10^3/uL High 1.5-7.7 Abs Lymphocytes 2.2 10^3/uL 1.0-4.8 Abs Monocytes 0.8 10^3/uL 0-0.8 Abs Eosinophils 0.2 10^3/uL 0-0.6 Abs Basophils 0.2 10^3/uL 0-0.2 Abs Nucleated RBC 0 10^3/uL Granulocyte % 72.5 % 38-83 Lymphocyte % 18.1 % Low 25-47 Monocyte % 6.3 % 1-9 Eosinophil % 1.8 % 0-6 Basophil % 1.3 % 0-2 Nucleated Red Blood Cells % 0 Laboratory test finding 04/12/2016 Digoxin 0.9 ng/ml 0.8-2.0 23 Lipid Profile (Trig/Chol/HDL) 04/12/2016 Triglycerides 372 mg/dL 24 Cholesterol 164 mg/dL 25 HDL Cholesterol 44.2 mg/dL 26 LDL Cholesterol 45 mg/dL 27 Inr/Protime 04/01/2016 Inr 2.22 High 0.89-1.11 Inr/Protime 03/25/2016 Inr 1.66 High 0.89-1.11 28 Inr/Protime 03/18/2016 Inr 1.78 High 0.89-1.11 Inr/Protime 03/11/2016 Inr 1.59 High 0.89-1.11 28 Laboratory test finding 03/11/2016 Digoxin 0.8 ng/ml 0.8-2.0 28 Inr/Protime 03/05/2016 Inr 2.55 High 0.89-1.11 CBC Auto Diff 03/05/2016 White Blood Count 8.4 10^3/uL 3.5-10.8 Red Blood Count 3.84 10^6/uL Low 4.0-5.4 Hemoglobin 10.7 g/dL Low 12.0-16.0 Hematocrit 33 % Low 35-47 Mean Corpuscular Volume 86 fL 80-97 Mean Corpuscular Hemoglobin 28 pg 27-31 Mean Corpuscular HGB Conc 32 g/dL 31-36 Red Cell Distribution Width 14 % 10.5-15 Platelet Count 382 10^3/uL 150-450 Mean Platelet Volume 8 um3 7.4-10.4 Abs Neutrophils 6.0 10^3/uL 1.5-7.7 Abs Lymphocytes 1.7 10^3/uL 1.0-4.8 Abs Monocytes 0.5 10^3/uL 0-0.8 Abs Eosinophils 0.2 10^3/uL 0-0.6 Abs Basophils 0.1 10^3/uL 0-0.2 Abs Nucleated RBC 0 10^3/uL Granulocyte % 70.6 % 38-83 Lymphocyte % 19.7 % Low 25-47 Monocyte % 6.0 % 1-9 Eosinophil % 2.3 % 0-6 Basophil % 1.4 % 0-2 Nucleated Red Blood Cells % 0 Laboratory test finding 02/29/2016 Erythrocyte Sed Rate 53 mm/Hr High 0- 30 CRP High Sensitivity 27.42 mg/L 29 CBC Auto Diff 02/29/2016 White Blood Count 8.3 10^3/uL 3.5-10.8 Red Blood Count 3.84 10^6/uL Low 4.0-5.4 Hemoglobin 10.8 g/dL Low 12.0-16.0 Hematocrit 33 % Low 35-47 Mean Corpuscular Volume 86 fL 80-97 Mean Corpuscular Hemoglobin 28 pg 27-31 Mean Corpuscular HGB Conc 33 g/dL 31-36 Red Cell Distribution Width 14 % 10.5-15 Platelet Count 330 10^3/uL 150-450 Mean Platelet Volume 8 um3 7.4-10.4 Abs Neutrophils 5.5 10^3/uL 1.5-7.7 Abs Lymphocytes 2.0 10^3/uL 1.0-4.8 Abs Monocytes 0.5 10^3/uL 0-0.8 Abs Eosinophils 0.2 10^3/uL 0-0.6 Abs Basophils 0.1 10^3/uL 0-0.2 Abs Nucleated RBC 0 10^3/uL Granulocyte % 66.7 % 38-83 Lymphocyte % 24.0 % Low 25-47 Monocyte % 6.4 % 1-9 Eosinophil % 1.9 % 0-6 Basophil % 1.0 % 0-2 Nucleated Red Blood Cells % 0 Basic Metabolic Panel 02/29/2016 Sodium 138 mmol/L 133-145 Potassium 4.0 mmol/L 3.5-5.0 Chloride 101 mmol/L 101-111 Co2 Carbon Dioxide 30 mmol/L 22-32 Anion Gap 7 mmol/L 2-11 Glucose 121 mg/dL High 70-100 Blood Urea Nitrogen 13 mg/dL 6-24 Creatinine 0.75 mg/dL 0.51-0.95 BUN/Creatinine Ratio 17.3 8-20 Calcium 9.9 mg/dL 8.6-10.3 Egfr Non- 77.8 >60 Egfr 100.1 >60 30 Inr/Protime 02/29/2016 Inr 1.98 High 0.89-1.11 Inr/Protime 02/26/2016 Inr 1.35 High 0.89-1.11 Basic Metabolic Panel 12/27/2015 Sodium 138 mmol/L 133-145 Potassium 4.5 mmol/L 3.5-5.0 Chloride 102 mmol/L 101-111 Co2 Carbon Dioxide 28 mmol/L 22-32 Anion Gap 8 mmol/L 2-11 Glucose 102 mg/dL High 70-100 Blood Urea Nitrogen 18 mg/dL 6-24 Creatinine 0.86 mg/dL 0.51-0.95 BUN/Creatinine Ratio 20.9 High 8-20 Calcium 9.2 mg/dL 8.6-10.3 Egfr Non- 66.4 >60 Egfr 85.4 >60 31 Laboratory test finding 12/27/2015 Digoxin 0.9 ng/ml 0.8-2.0 32 Magnesium 1.8 mg/dL Low 1.9-2.7 33 CBC Auto Diff 12/27/2015 White Blood Count 7.6 10^3/uL 3.5-10.8 Red Blood Count 4.43 10^6/uL 4.0-5.4 Hemoglobin 13.1 g/dL 12.0-16.0 Hematocrit 40 % 35-47 Mean Corpuscular Volume 91 fL 80-97 Mean Corpuscular Hemoglobin 30 pg 27-31 Mean Corpuscular HGB Conc 33 g/dL 31-36 Red Cell Distribution Width 14 % 10.5-15 Platelet Count 256 10^3/uL 150-450 Mean Platelet Volume 8 um3 7.4-10.4 Abs Neutrophils 5.0 10^3/uL 1.5-7.7 Abs Lymphocytes 2.0 10^3/uL 1.0-4.8 Abs Monocytes 0.5 10^3/uL 0-0.8 Abs Eosinophils 0.1 10^3/uL 0-0.6 Abs Basophils 0.1 10^3/uL 0-0.2 Abs Nucleated RBC 0 10^3/uL Granulocyte % 65.3 % 38-83 Lymphocyte % 25.9 % 25-47 Monocyte % 6.4 % 1-9 Eosinophil % 1.7 % 0-6 Basophil % 0.7 % 0-2 Nucleated Red Blood Cells % 0 Laboratory test 12/27/2015 D Dimer Quantitative < 200 ng/mL Less Than 230 34 finding Laboratory test 11/07/2015 Digoxin 0.8 ng/ml 0.8-2.0 35, 36 finding Basic Metabolic 11/07/2015 Sodium 138 mmol/L 133-145 35 Panel Potassium 4.5 mmol/L 3.5-5.0 35 Chloride 101 mmol/L 101-111 35 Co2 Carbon Dioxide 29 mmol/L 22-32 35 Anion Gap 8 mmol/L 2-11 35 Glucose 105 mg/dL High 70-100 35 Blood Urea Nitrogen 24 mg/dL 6-24 35 Creatinine 0.98 mg/dL High 0.51-0.95 35 BUN/Creatinine Ratio 24.5 High 8-20 35 Calcium 9.6 mg/dL 8.6-10.3 35 Egfr Non- 57.1 >60 35 Egfr 73.5 >60 35, 37 Laboratory test finding 10/19/2015 B-Type Natriuretic Peptide BNP 309 pg/mL High 38 Magnesium 2.0 mg/dL 1.9-2.7 39 CBC Auto Diff 10/19/2015 White Blood Count 7.2 10^3/uL 3.5-10.8 Red Blood Count 4.05 10^6/uL 4.0-5.4 Hemoglobin 12.3 g/dL 12.0-16.0 Hematocrit 37 % 35-47 Mean Corpuscular Volume 91 fL 80-97 Mean Corpuscular Hemoglobin 30 pg 27-31 Mean Corpuscular HGB Conc 33 g/dL 31-36 Red Cell Distribution Width 14 % 10.5-15 Platelet Count 257 10^3/uL 150-450 Mean Platelet Volume 8 um3 7.4-10.4 Abs Neutrophils 4.7 10^3/uL 1.5-7.7 Abs Lymphocytes 1.8 10^3/uL 1.0-4.8 Abs Monocytes 0.6 10^3/uL 0-0.8 Abs Eosinophils 0.1 10^3/uL 0-0.6 Abs Basophils 0.1 10^3/uL 0-0.2 Abs Nucleated RBC 0 10^3/uL Granulocyte % 65.2 % 38-83 Lymphocyte % 24.3 % Low 25-47 Monocyte % 8.0 % 1-9 Eosinophil % 1.6 % 0-6 Basophil % 0.9 % 0-2 Nucleated Red Blood Cells % 0 Basic Metabolic Panel 10/19/2015 Sodium 139 mmol/L 133-145 Potassium 4.6 mmol/L 3.5-5.0 Chloride 105 mmol/L 101-111 Co2 Carbon Dioxide 28 mmol/L 22-32 Anion Gap 6 mmol/L 2-11 Glucose 103 mg/dL High 70-100 Blood Urea Nitrogen 15 mg/dL 6-24 Creatinine 1.00 mg/dL High 0.51-0.95 BUN/Creatinine Ratio 15.0 8-20 Calcium 9.3 mg/dL 8.6-10.3 Egfr Non- 55.8 >60 Egfr 71.8 >60 40 Comp Metabolic Panel 07/18/2015 Sodium 138 mmol/L 133-145 Potassium 4.3 mmol/L 3.5-5.0 Chloride 103 mmol/L 101-111 Co2 Carbon Dioxide 27 mmol/L 22-32 Anion Gap 8 mmol/L 2-11 Glucose 115 mg/dL High 70-100 Blood Urea Nitrogen 18 mg/dL 6-24 Creatinine 0.84 mg/dL 0.51-0.95 BUN/Creatinine Ratio 21.4 High 8-20 Calcium 9.3 mg/dL 8.6-10.3 Total Protein 6.6 g/dL 6.4-8.9 Albumin 4.2 g/dL 3.2-5.2 Globulin 2.4 g/dL 2-4 Albumin/Globulin Ratio 1.8 1-3 Total Bilirubin 0.50 mg/dL 0.2-1.0 Alkaline Phosphatase 64 U/L 34-104 Alt 20 U/L 7-52 Ast 18 U/L 13-39 Egfr Non- 68.3 >60 Egfr 87.8 >60 41 Laboratory test finding 07/18/2015 TSH (Thyroid Stim Horm) 2.76 ?IU/mL 0.34-5.60 Vitamin D, 1,25 Dihydroxy 67 pg/mL 18-78 42 Lyme Western Blot 07/18/2015 Lyme Disease IgG Ab WB Negative Negative Lyme Disease IgG Bands Present No bands detecte <SEE NOTE> kDa 43 Lyme Disease IgM Ab WB Negative Negative Lyme Disease IgM Bands Present No bands detecte <SEE NOTE> kDa 44 Lyme Disease Interpretation See Comment 45 CBC Auto Diff 04/13/2015 White Blood Count 10.2 10^3/uL 4.8-10.8 Red Blood Count 4.04 10^6/uL 4.0-5.4 Hemoglobin 12.2 g/dL 12.0-16.0 Hematocrit 38 % 35-47 Mean Corpuscular Volume 93 fL 80-97 Mean Corpuscular Hemoglobin 30 pg 27-31 Mean Corpuscular HGB Conc 32 g/dL 31-36 Red Cell Distribution Width 13 % 10.5-15 Platelet Count 276 10^3/uL 150-450 Mean Platelet Volume 8 um3 7.4-10.4 Abs Neutrophils 6.1 10^3/uL 1.5-7.7 Abs Lymphocytes 3.1 10^3/uL 1.0-4.8 Abs Monocytes 0.8 10^3/uL 0-0.8 Abs Eosinophils 0.1 10^3/uL 0-0.6 Abs Basophils 0.1 10^3/uL 0-0.2 Abs Nucleated RBC 0 10^3/uL Granulocyte % 60.1 % 38-83 Lymphocyte % 30.8 % 25-47 Monocyte % 7.5 % 1-9 Eosinophil % 0.9 % 0-6 Basophil % 0.7 % 0-2 Nucleated Red Blood Cells % 0 Basic Metabolic Panel 04/13/2015 Sodium 140 mmol/L 133-145 Potassium 3.7 mmol/L 3.5-5.0 Chloride 103 mmol/L 101-111 Co2 Carbon Dioxide 28 mmol/L 22-32 Anion Gap 9 mmol/L 2-11 Glucose 95 mg/dL 70-100 Blood Urea Nitrogen 23 mg/dL 6-24 Creatinine 0.92 mg/dL 0.51-0.95 BUN/Creatinine Ratio 25.0 High 8-20 Calcium 9.0 mg/dL 8.6-10.3 Egfr Non- 61.7 >60 Egfr 79.3 >60 46 Laboratory test finding 04/13/2015 Magnesium 2.0 mg/dL 1.9-2.7 Urine Culture And Sensitivities 06/30/2014 Urine Culture (SEE NOTE) 47 , 48 Comp Metabolic Panel 06/30/2014 Sodium 138 mmol/L 133-145 47 Potassium 4.3 mmol/L 3.5-5.0 47 Chloride 103 mmol/L 101-111 47 Co2 Carbon Dioxide 25 mmol/L 22-32 47 Anion Gap 10 mmol/L 2-11 47 Glucose 112 mg/dL High 70-100 47 Blood Urea Nitrogen 19 mg/dL 6-24 47 Creatinine 0.93 mg/dL 0.51-0.95 47 BUN/Creatinine Ratio 20.4 High 8-20 47 Calcium 10.0 mg/dL 8.6-10.3 47 Total Protein 7.5 g/dL 6.4-8.9 47 Albumin 4.6 g/dL 3.2-5.2 47 Globulin 2.9 g/dL 2-4 47 Albumin/Globulin Ratio 1.6 1-3 47 Total Bilirubin 0.70 mg/dL 0.2-1.0 47 Alkaline Phosphatase 64 U/L 34-104 47 Alt 25 U/L 7-52 47 Ast 23 U/L 13-39 47 Egfr Non- 61.1 >60 47 Egfr 78.6 >60 47, 49 Type & Screen 06/30/2014 Patient Blood Type A Positive 47 Antibody Screen NEGATIVE 47 CBC No Diff 06/30/2014 White Blood Count 9.6 10^3/uL 4.8-10.8 47 Red Blood Count 4.62 10^6/uL 4.0-5.4 47 Hemoglobin 14.5 g/dL 12.0-16.0 47 Hematocrit 43 % 35-47 47 Mean Corpuscular Volume 92 fL 80-97 47 Mean Corpuscular Hemoglobin 31 pg 27-31 47 Mean Corpuscular HGB Conc 34 g/dL 31-36 47 Red Cell Distribution Width 14 % 10.5-15 47 Platelet Count 294 10^3/uL 150-450 47 Mean Platelet Volume 8 um3 7.4-10.4 47 Laboratory test 06/30/2014 Activated Partial 30.1 seconds 24.0-36.1 47, 50 finding Thrombo Time Inr/Protime 06/30/2014 Inr 0.94 0.78-1.07 47, 51 Urinalysis Profile 06/30/2014 Urine Color Yellow 47 Urine Appearance Cloudy 47 Urine Specific [place] 1.014 1.010-1.030 47 Urine pH 5.0 5-9 47 Urine Urobilinogen Negative Negative 47 Urine Ketones Negative Negative 47 Urine Protein Negative Negative 47 Urine Leukocytes Negative Negative 47 Urine Blood Negative Negative 47 Urine Nitrite Negative Negative 47 Urine Bilirubin Negative Negative 47 Urine Glucose Negative Negative 47 Lipid Panel - [facility] 06/20/2014 Creatine Kinase 44 U/L 10-223 Comp Metabolic Panel 06/20/2014 Sodium 139 mmol/L 133-145 Potassium 4.3 mmol/L 3.5-5.0 Chloride 104 mmol/L 101-111 Co2 Carbon Dioxide 30 mmol/L 22-32 Anion Gap 5 mmol/L 2-11 Glucose 111 mg/dL High 70-100 Blood Urea Nitrogen 17 mg/dL 6-24 Creatinine 0.91 mg/dL 0.51-0.95 BUN/Creatinine Ratio 18.7 8-20 Calcium 9.2 mg/dL 8.6-10.3 Total Protein 7.3 g/dL 6.4-8.9 Albumin 4.3 g/dL 3.2-5.2 Globulin 3.0 g/dL 2-4 Albumin/Globulin Ratio 1.4 1-3 Total Bilirubin 0.60 mg/dL 0.2-1.0 Alkaline Phosphatase 54 U/L 34-104 Alt 25 U/L 7-52 Ast 22 U/L 13-39 Egfr Non- 62.6 >60 Egfr 80.6 >60 52 Lipid Profile (Trig/Chol/HDL) 06/20/2014 Triglycerides 205 mg/dL 53 Cholesterol 183 mg/dL 54 HDL Cholesterol 63.2 mg/dL 55 LDL Cholesterol 79 mg/dL 56 CBC Auto Diff 06/20/2014 White Blood Count 7.8 10^3/uL 4.8-10.8 Red Blood Count 4.27 10^6/uL 4.0-5.4 Hemoglobin 13.3 g/dL 12.0-16.0 Hematocrit 40 % 35-47 Mean Corpuscular Volume 93 fL 80-97 Mean Corpuscular Hemoglobin 31 pg 27-31 Mean Corpuscular HGB Conc 34 g/dL 31-36 Red Cell Distribution Width 14 % 10.5-15 Platelet Count 279 10^3/uL 150-450 Mean Platelet Volume 8 um3 7.4-10.4 Abs Neutrophils 4.9 10^3/uL 1.5-7.7 Abs Lymphocytes 2.2 10^3/uL 1.0-4.8 Abs Monocytes 0.5 10^3/uL 0-0.8 Abs Eosinophils 0.2 10^3/uL 0-0.6 Abs Basophils 0.1 10^3/uL 0-0.2 Abs Nucleated RBC 0 10^3/uL Granulocyte % 62.1 % 38-83 Lymphocyte % 27.7 % 25-47 Monocyte % 6.9 % 1-9 Eosinophil % 2.2 % 0-6 Basophil % 1.1 % 0-2 Nucleated Red Blood Cells % 0 Inr/Protime 06/20/2014 Inr 0.93 0.85-1.06 Laboratory test 06/20/2014 Activated Partial 29.7 seconds 24.0-36.1 finding Thrombo Time Order 05/31/2014 Echocardiogram <pending> Laboratory test 04/30/2014 Creatine Kinase 38 U/L 10-223 57 finding Hemoglobin A1c 6.2 % High Less than 6.0 57, 58 Lipid Profile (Trig/Chol/HDL) 04/30/2014 Triglycerides 312 mg/dL 57, 59 Cholesterol 237 mg/dL 57, 60 HDL Cholesterol 59.9 mg/dL 57, 61 LDL Cholesterol 115 mg/dL 57, 62 Comp Metabolic Panel 04/30/2014 Sodium 135 mmol/L 133-145 57 Potassium 4.0 mmol/L 3.5-5.0 57 Chloride 99 mmol/L Low 101-111 57 Co2 Carbon Dioxide 30 mmol/L 22-32 57 Anion Gap 6 mmol/L 2-11 57 Glucose 91 mg/dL 70-100 57 Blood Urea Nitrogen 27 mg/dL High 6-24 57 Creatinine 0.99 mg/dL High 0.51-0.95 57 BUN/Creatinine Ratio 27.3 High 8-20 57 Calcium 9.0 mg/dL 8.6-10.3 57 Total Protein 7.0 g/dL 6.4-8.9 57 Albumin 3.9 g/dL 3.2-5.2 57 Globulin 3.1 g/dL 2-4 57 Albumin/Globulin Ratio 1.3 1-3 57 Total Bilirubin 0.50 mg/dL 0.2-1.0 57 Alkaline Phosphatase 74 U/L 34-104 57 Alt 37 U/L 7-52 57 Ast 21 U/L 13-39 57 Egfr Non- 56.8 >60 57 Egfr 73.1 >60 57, 63 Laboratory test 04/30/2014 TSH (Thyroid 3.65 IU/mL 0.34-5.60 57, 64 finding Stimulating Horm) Lipid Panel - [facility] 01/11/2014 Creatine Kinase 40 U/L 10-223 65, 66 Comp Metabolic Panel 01/11/2014 Sodium 138 mmol/L 133-145 65 Potassium 3.8 mmol/L 3.7-5.6 65 Chloride 101 mmol/L 101-111 65 Co2 Carbon Dioxide 29 mmol/L 22-32 65 Anion Gap 8 mmol/L 2-11 65 Glucose 108 mg/dL High 70-100 65 Blood Urea Nitrogen 20 mg/dL 6-24 65 Creatinine 0.93 mg/dL 0.51-0.95 65 BUN/Creatinine Ratio 21.5 High 8-20 65 Calcium 9.5 mg/dL 8.6-10.3 65 Total Protein 7.2 g/dL 6.4-8.9 65 Albumin 4.4 g/dL 3.2-5.2 65 Globulin 2.8 g/dL 2-4 65 Albumin/Globulin Ratio 1.6 1-3 65 Total Bilirubin 0.60 mg/dL 0.2-1.0 65 Alkaline Phosphatase 57 U/L 34-104 65 Alt 30 U/L 7-52 65 Ast 22 U/L 13-39 65 Egfr Non- 61.1 >60 65 Egfr 78.6 >60 65, 67 Lipid Profile (Trig/Chol/HDL) 01/11/2014 Triglycerides 368 mg/dL 65, 68 Cholesterol 238 mg/dL 65, 69 HDL Cholesterol 66.1 mg/dL 65, 70 LDL Cholesterol 98 mg/dL 65, 71 CBC No Diff 10/21/2013 White Blood Count 6.8 10^3/uL 4.8-10.8 65 Red Blood Count 4.32 10^6/uL 4.0-5.4 65 Hemoglobin 13.6 g/dL 12.0-16.0 65 Hematocrit 40 % 35-47 65 Mean Corpuscular Volume 93 fL 80-97 65 Mean Corpuscular Hemoglobin 31 pg 27-31 65 Mean Corpuscular HGB Conc 34 g/dL 31-36 65 Red Cell Distribution Width 14 % 10.5-15 65 Platelet Count 265 10^3/uL 150-450 65 Mean Platelet Volume 8 um3 7.4-10.4 65 Comp Metabolic Panel 10/21/2013 Sodium 140 mmol/L 133-145 65 Potassium 4.2 mmol/L 3.7-5.6 65 Chloride 104 mmol/L 101-111 65 Co2 Carbon Dioxide 29 mmol/L 22-32 65 Anion Gap 7 mmol/L 2-11 65 Glucose 100 mg/dL 70-100 65 Blood Urea Nitrogen 16 mg/dL 6-24 65 Creatinine 0.91 mg/dL 0.51-0.95 65 BUN/Creatinine Ratio 17.6 8-20 65 Calcium 9.5 mg/dL 8.6-10.3 65 Total Protein 7.1 g/dL 6.4-8.9 65 Albumin 4.4 g/dL 3.2-5.2 65 Globulin 2.7 g/dL 2-4 65 Albumin/Globulin Ratio 1.6 1-3 65 Total Bilirubin 0.70 mg/dL 0.2-1.0 65 Alkaline Phosphatase 66 U/L 34-104 65 Alt 101 U/L High 7-52 65 Ast 47 U/L High 13-39 65 Egfr Non- 62.6 >60 65 Egfr 80.6 >60 65, 72 Lipid Profile (Trig/Chol/HDL) 10/21/2013 Triglycerides 231 mg/dL 65, 73 Cholesterol 358 mg/dL 65, 74 HDL Cholesterol 66.6 mg/dL 65, 75 LDL Cholesterol 245 mg/dL 65, 76 Laboratory test 10/21/2013 TSH (Thyroid 2.96 IU/mL 0.34-5.60 65, 77 finding Stimulating Horm) Hemoglobin A1c 5.8 % Less than 6.0 65, 78 CBC Auto Diff 08/13/2013 White Blood Count 7.6 10^3/uL 4.8-10.8 Red Blood Count 4.67 10^6/uL 4.0-5.4 Hemoglobin 14.7 g/dL 12.0-16.0 Hematocrit 43 % 35-47 Mean Corpuscular Volume 91 fL 80-97 Mean Corpuscular Hemoglobin 32 pg High 27-31 Mean Corpuscular HGB Conc 35 g/dL 31-36 Red Cell Distribution Width 13 % 10.5-15 Platelet Count 270 10^3/uL 150-450 Mean Platelet Volume 9 um3 7.4-10.4 Abs Neutrophils 4.3 10^3/uL 1.5-7.7 Abs Lymphocytes 2.2 10^3/uL 1.0-4.8 Abs Monocytes 0.4 10^3/uL 0-0.8 Abs Eosinophils 0.6 10^3/uL 0-0.6 Abs Basophils 0.1 10^3/uL 0-0.2 Abs Nucleated RBC 0.01 10^3/uL Granulocyte % 56.5 % 38-83 Lymphocyte % 28.8 % 25-47 Monocyte % 5.3 % 1-9 Eosinophil % 8.4 % High 0-6 Basophil % 1.0 % 0-2 Nucleated Red Blood Cells % 0.1 Inr/Protime 08/13/2013 Inr 0.93 0.85-1.06 Comp Metabolic Panel 08/13/2013 Sodium 140 mmol/L 133-145 Potassium 4.1 mmol/L 3.7-5.6 Chloride 102 mmol/L 101-111 Co2 Carbon Dioxide 29 mmol/L 22-32 Anion Gap 9 mmol/L 2-11 Glucose 96 mg/dL 70-100 Blood Urea Nitrogen 21 mg/dL 6-24 Creatinine 0.97 mg/dL High 0.51-0.95 BUN/Creatinine Ratio 21.6 High 8-20 Calcium 9.6 mg/dL 8.6-10.3 Total Protein 7.0 g/dL 6.4-8.9 Albumin 4.5 g/dL 3.2-5.2 Globulin 2.5 g/dL 2-4 Albumin/Globulin Ratio 1.8 1-3 Total Bilirubin 0.60 mg/dL 0.2-1.0 Alkaline Phosphatase 67 U/L 34-104 Alt 42 U/L 7-52 Ast 30 U/L 13-39 Egfr Non- 58.2 >60 Egfr 74.8 >60 79 Laboratory test finding 08/13/2013 Magnesium 2.0 mg/dL 1.9-2.7 Creatine Kinase 46 U/L 10-223 CKMB 08/13/2013 CKMB ng/mL 1.2 ng/mL 0.6-6.3 Laboratory test finding 08/13/2013 Troponin I 0.00 ng/mL <0.03 80 TSH (Thyroid Stimulating Horm) 1.98 IU/mL 0.34-5.60 D Dimer Quantitative < 200 ng/mL Less Than 230 81 CBC No Diff 05/05/2013 White Blood Count 6.8 10^3/uL 4.8-10.8 Red Blood Count 4.66 10^6/uL 4.0-5.4 Hemoglobin 14.0 g/dL 12.0-16.0 Hematocrit 42 % 35-47 Mean Corpuscular Volume 89 fL 80-97 Mean Corpuscular Hemoglobin 30 pg 27-31 Mean Corpuscular HGB Conc 34 g/dL 31-36 Red Cell Distribution Width 14 % 10.5-15 Platelet Count 265 10^3/uL 150-450 Mean Platelet Volume 8 um3 7.4-10.4 Comp Metabolic Panel 05/05/2013 Sodium 139 mmol/L 133-145 Potassium 4.5 mmol/L 3.5-5.0 Chloride 101 mmol/L 101-111 Co2 Carbon Dioxide 32.0 mmol/L 22-32 Anion Gap 6.0 mmol/L 2-11 Glucose 109 mg/dL High 70-100 Blood Urea Nitrogen 21 mg/dL 6-24 Creatinine 0.90 mg/dL 0.50-1.40 BUN/Creatinine Ratio 23.3 High 8-20 Calcium 9.7 mg/dL 8.1-9.9 Total Protein 7.2 g/dL 6.2-8.1 Albumin 4.3 g/dL 3.2-5.2 Globulin 2.9 g/dL 2-4 Albumin/Globulin Ratio 1.5 1-3 Total Bilirubin 1.3 mg/dL 0.4-1.5 Alkaline Phosphatase 69 U/L 30-110 Alt 46 U/L 14-54 Ast 30 U/L 12-42 Egfr Non- 63.7 >60 Egfr 81.9 >60 82 Lipid Profile (Trig/Chol/HDL) 05/05/2013 Triglycerides 225 mg/dL High 40- 200 Cholesterol 211 mg/dL High Less than 200 HDL Cholesterol 90 mg/dL High 40-60 83 Cholesterol/HDL Ratio 2.3 Average 1-4.44 LDL Cholesterol 76.0 Less Than 100 84 Laboratory test finding 05/05/2013 Hemoglobin A1c 6.4 % High Less than 6.0 85 TSH (Thyroid Stimulating Horm) 1.24 miu/mL 0.34-5.60 86 Basic Metabolic Panel 12/08/2012 Sodium 139 mmol/L 133-145 Potassium 4.6 mmol/L 3.5-5.0 Chloride 103 mmol/L 101-111 Co2 Carbon Dioxide 27.0 mmol/L 22-32 Anion Gap 9.0 mmol/L 2-11 Glucose 100 mg/dL 70-100 Blood Urea Nitrogen 22 mg/dL 6-24 Creatinine 1.00 mg/dL 0.50-1.40 BUN/Creatinine Ratio 22.0 High 8-20 Calcium 9.5 mg/dL 8.1-9.9 Egfr Non- 56.4 >60 Egfr 72.5 >60 87 Laboratory test finding 12/08/2012 Hemoglobin A1c 6.1 % High Less than 6.0 88 TSH (Thyroid Stimulating Horm) 2.64 miu/mL 0.34-5.60 89 Laboratory test 10/15/2012 TSH (Thyroid 5.09 miu/mL 0.34-5.60 90 finding Stimulating Horm) Lipid Profile 10/15/2012 Triglycerides 203 mg/dL High 40-200 (Trig/Chol/HDL) Cholesterol 180 mg/dL Less than 200 HDL Cholesterol 61 mg/dL High 40-60 91 Cholesterol/HDL Ratio 3.0 Average 1-4.44 LDL Cholesterol 78.4 mg/dL Less Than 100 92 Comp Metabolic Panel 10/15/2012 Sodium 138 mmol/L 133-145 Potassium 3.6 mmol/L 3.5-5.0 Chloride 101 mmol/L 101-111 Co2 Carbon Dioxide 28.0 mmol/L 22-32 Anion Gap 9.0 mmol/L 2-11 Glucose 109 mg/dL High 70-100 Blood Urea Nitrogen 16 mg/dL 6-24 Creatinine 0.90 mg/dL 0.50-1.40 BUN/Creatinine Ratio 17.8 8-20 Calcium 9.5 mg/dL 8.1-9.9 Total Protein 6.7 g/dL 6.2-8.1 Albumin 3.9 g/dL 3.2-5.2 Globulin 2.8 g/dL 2-4 Albumin/Globulin Ratio 1.4 1-3 Total Bilirubin 0.8 mg/dL 0.4-1.5 Alkaline Phosphatase 69 U/L 30-110 Alt 34 U/L 14-54 Ast 32 U/L 12-42 Egfr Non- 63.7 >60 Egfr 81.9 >60 93 CBC No Diff 10/15/2012 White Blood Count 6.7 10^3/uL 4.8-10.8 Red Blood Count 4.62 10^6/uL 4.0-5.4 Hemoglobin 14.1 g/dL 12.0-16.0 Hematocrit 42 % 35-47 Mean Corpuscular Volume 91 fL 80-97 Mean Corpuscular Hemoglobin 31 pg 27-31 Mean Corpuscular HGB Conc 34 g/dL 31-36 Red Cell Distribution Width 14 % 10.5-15 Platelet Count 224 10^3/uL 150-450 Mean Platelet Volume 9 um3 7.4-10.4 Laboratory test finding 06/23/2012 Magnesium 2.2 mg/dL 1.7-2.6 Creatine Kinase 74 U/L 0-200 CKMB 1.3 ng/mL 0.3-4.0 94 Troponin I 0 ng/mL 0-0.06 95 TSH (Thyroid Stimulating Horm) 2.68 miu/mL 0.34-5.60 Comp Metabolic Panel 06/23/2012 Sodium 138 mmol/L 133-145 Potassium 3.9 mmol/L 3.5-5.0 Chloride 101 mmol/L 101-111 Co2 Carbon Dioxide 27.0 mmol/L 22-32 Anion Gap 10.0 mmol/L 2-11 Glucose 110 mg/dL High 70-100 Blood Urea Nitrogen 11 mg/dL 6-24 Creatinine 0.90 mg/dL 0.50-1.40 BUN/Creatinine Ratio 12.2 8-20 Calcium 9.4 mg/dL 8.1-9.9 Total Protein 6.7 g/dL 6.2-8.1 Albumin 3.8 g/dL 3.2-5.2 Globulin 2.9 g/dL 2-4 Albumin/Globulin Ratio 1.3 1-3 Total Bilirubin 1.2 mg/dL 0.4-1.5 Alkaline Phosphatase 58 U/L 30-110 Alt 41 U/L 14-54 Ast 40 U/L 12-42 Egfr Non- 63.9 >60 Egfr 82.1 >60 96 Laboratory test finding 06/23/2012 Inr 0.78 Low 0.82-1.17 97 Activated Partial Thrombo Time 18.5 sec Low 22.18-37.18 CBC Auto Diff 06/23/2012 White Blood Count 6.7 10^3/uL 4.8-10.8 Red Blood Count 4.53 10^6/uL 4.0-5.4 Hemoglobin 13.5 g/dL 12.0-16.0 Hematocrit 41 % 35-47 Mean Corpuscular Volume 91 fL 80-97 Mean Corpuscular Hemoglobin 30 pg 27-31 Mean Corpuscular HGB Conc 33 g/dL 31-36 Red Cell Distribution Width 14 % 10.5-15 Platelet Count 244 10^3/uL 150-450 Mean Platelet Volume 9 um3 7.4-10.4 Abs Neutrophils 3.9 10^3/uL 1.5-7.7 Abs Lymphocytes 2.2 10^3/uL 1.0-4.8 Abs Monocytes 0.4 10^3/uL 0-0.8 Abs Eosinophils 0.2 10^3/uL 0-0.6 Abs Basophils 0.1 10^3/uL 0-0.2 Abs Nucleated RBC 0 10^3/uL Granulocyte % 58.1 % 38-83 Lymphocyte % 32.2 % 25-47 Monocyte % 5.4 % 1-9 Eosinophil % 3.4 % 0-6 Basophil % 0.9 % 0-2 Nucleated Red Blood Cells % 0.1 Laboratory test finding 06/23/2012 B Type Natriuretic 74.0 pg/mL 0-100 Peptide CBC No Diff 05/07/2012 White Blood Count 5.6 10^3/uL 4.8-10.8 Red Blood Count 4.43 10^6/uL 4.0-5.4 Hemoglobin 13.3 g/dL 12.0-16.0 Hematocrit 40 % 35-47 Mean Corpuscular Volume 91 fL 80-97 Mean Corpuscular Hemoglobin 30 pg 27-31 Mean Corpuscular HGB Conc 33 g/dL 31-36 Red Cell Distribution Width 13 % 10.5-15 Platelet Count 220 10^3/uL 150-450 Mean Platelet Volume 8 um3 7.4-10.4 Comp Metabolic Panel 05/07/2012 Sodium 141 mmol/L 133-145 Potassium 4.0 mmol/L 3.5-5.0 Chloride 102 mmol/L 101-111 Co2 Carbon Dioxide 31.0 mmol/L 22-32 Anion Gap 8.0 mmol/L 2-11 Glucose 114 mg/dL High 70-100 Blood Urea Nitrogen 15 mg/dL 6-24 Creatinine 0.80 mg/dL 0.50-1.40 BUN/Creatinine Ratio 18.8 8-20 Calcium 9.3 mg/dL 8.1-9.9 Total Protein 6.4 g/dL 6.2-8.1 Albumin 3.7 g/dL 3.2-5.2 Globulin 2.7 g/dL 2-4 Albumin/Globulin Ratio 1.4 1-3 Total Bilirubin 1.3 mg/dL 0.4-1.5 Alkaline Phosphatase 64 U/L 30-110 Alt 39 U/L 14-54 Ast 34 U/L 12-42 Egfr Non- 73.2 >60 Egfr 94.1 >60 98 Lipid Profile (Trig/Chol/HDL) 05/07/2012 Triglycerides 236 mg/dL High 40- 200 Cholesterol 196 mg/dL Less than 200 HDL Cholesterol 61 mg/dL High 40-60 99 Cholesterol/HDL Ratio 3.2 Average 1-4.44 LDL Cholesterol 87.8 mg/dL Less Than 100 100 Laboratory test finding 05/07/2012 Hemoglobin A1c 6.0 % Less than 6.0 101 TSH (Thyroid Stimulating Horm) 4.72 MIU/ML 0.34-5.60 102 1 FASTING 2 FASTING 3 Therapeutic target for the treatment of diabetes mellitus patients is <7% HBA1C, and in selective patients <6.0%. Please refer to [place] [employer] diabetic care guidelines for further information. 4 >100 to <200 pg/mL: likely compensated congestive heart failure (CHF) 200 to 400 pg/mL: likely moderate CHF >400 pg/mL: likely moderate to severe CHF 5 FASTING 6 Because ethnic data is not always readily available, this report includes an eGFR for both -Americans and non- Americans. The National Kidney Disease Education Program (NKDEP) does not endorse the use of the MDRD equation for patients that are not between the ages of 18 and 70, are , have extremes of body size, muscle mass, or nutritional status, or are non- or non-. According to the National Kidney Foundation, irrespective of diagnosis, the stage of the disease is based on the level of kidney function: Stage Description GFR(mL/min/1.73 m(2)) 1 Kidney damage with normal or decreased GFR 90 2 Kidney damage with mild decrease in GFR 60-89 3 Moderate decrease in GFR 30-59 4 Severe decrease in GFR 15-29 5 Kidney failure <15 (or dialysis) 7 FASTING 8 Desirable: <150 Borderline High: 150-199 High: 200-499 Very High: >500 9 Desirable: <200 Borderline High: 200-239 High: >239 10 Low: <40 Desirable: 40-60 High: >60 11 Desirable: <100 Near Optimal: 100-129 Borderline High: 130-159 High: 160-189 Very High: >189 12 Because ethnic data is not always readily available, this report includes an eGFR for both -Americans and non- Americans. The National Kidney Disease Education Program (NKDEP) does not endorse the use of the MDRD equation for patients that are not between the ages of 18 and 70, are , have extremes of body size, muscle mass, or nutritional status, or are non- or non-. According to the National Kidney Foundation, irrespective of diagnosis, the stage of the disease is based on the level of kidney function: Stage Description GFR(mL/min/1.73 m(2)) 1 Kidney damage with normal or decreased GFR 90 2 Kidney damage with mild decrease in GFR 60-89 3 Moderate decrease in GFR 30-59 4 Severe decrease in GFR 15-29 5 Kidney failure <15 (or dialysis) 13 Because ethnic data is not always readily available, this report includes an eGFR for both -Americans and non- Americans. The National Kidney Disease Education Program (NKDEP) does not endorse the use of the MDRD equation for patients that are not between the ages of 18 and 70, are , have extremes of body size, muscle mass, or nutritional status, or are non- or non-. According to the National Kidney Foundation, irrespective of diagnosis, the stage of the disease is based on the level of kidney function: Stage Description GFR(mL/min/1.73 m(2)) 1 Kidney damage with normal or decreased GFR 90 2 Kidney damage with mild decrease in GFR 60-89 3 Moderate decrease in GFR 30-59 4 Severe decrease in GFR 15-29 5 Kidney failure <15 (or dialysis) 14 Because ethnic data is not always readily available, this report includes an eGFR for both -Americans and non- Americans. The National Kidney Disease Education Program (NKDEP) does not endorse the use of the MDRD equation for patients that are not between the ages of 18 and 70, are , have extremes of body size, muscle mass, or nutritional status, or are non- or non-. According to the National Kidney Foundation, irrespective of diagnosis, the stage of the disease is based on the level of kidney function: Stage Description GFR(mL/min/1.73 m(2)) 1 Kidney damage with normal or decreased GFR 90 2 Kidney damage with mild decrease in GFR 60-89 3 Moderate decrease in GFR 30-59 4 Severe decrease in GFR 15-29 5 Kidney failure <15 (or dialysis) 15 Desirable <150 Borderline high 150-199 High 200-499 Very High >500 16 Desirable <200 Borderline high 200-239 High >239 17 Low <40 Desirable: 40-60 High: >60 18 Desirable: <100 mg/dL Near Optimal: 100-129 mg/dL Borderline High: 130-159 mg/dL High: 160-189 mg/dL Very High: >189 mg/dL 19 Therapeutic target for the treatment of diabetes Mellitus patients is <7% HBA1C, and in selective patients <6.0%.Please refer to [place] [employer] Diabetic care guidelines for further information. 20 PT IS FASTING 21 Because ethnic data is not always readily available, this report includes an eGFR for both -Americans and non- Americans. The National Kidney Disease Education Program (NKDEP) does not endorse the use of the MDRD equation for patients that are not between the ages of 18 and 70, are , have extremes of body size, muscle mass, or nutritional status, or are non- or non-. According to the National Kidney Foundation, irrespective of diagnosis, the stage of the disease is based on the level of kidney function: Stage Description GFR(mL/min/1.73 m(2)) 1 Kidney damage with normal or decreased GFR 90 2 Kidney damage with mild decrease in GFR 60-89 3 Moderate decrease in GFR 30-59 4 Severe decrease in GFR 15-29 5 Kidney failure <15 (or dialysis) 22 PT IS FASTING 23 PT IS FASTING 24 Desirable <150 Borderline high 150-199 High 200-499 Very High >500 25 Desirable <200 Borderline high 200-239 High >239 26 Low <40 Desirable: 40-60 High: >60 27 Desirable: <100 mg/dL Near Optimal: 100-129 mg/dL Borderline High: 130-159 mg/dL High: 160-189 mg/dL Very High: >189 mg/dL 28 PRN VALID 02/21/16-08/20/16 29 Low risk: <1.00 Average risk: 1.00-3.00 High risk: >3.00 30 Because ethnic data is not always readily available, this report includes an eGFR for both -Americans and non- Americans. The National Kidney Disease Education Program (NKDEP) does not endorse the use of the MDRD equation for patients that are not between the ages of 18 and 70, are , have extremes of body size, muscle mass, or nutritional status, or are non- or non-. According to the National Kidney Foundation, irrespective of diagnosis, the stage of the disease is based on the level of kidney function: Stage Description GFR(mL/min/1.73 m(2)) 1 Kidney damage with normal or decreased GFR 90 2 Kidney damage with mild decrease in GFR 60-89 3 Moderate decrease in GFR 30-59 4 Severe decrease in GFR 15-29 5 Kidney failure <15 (or dialysis) 31 Because ethnic data is not always readily available, this report includes an eGFR for both -Americans and non- Americans. The National Kidney Disease Education Program (NKDEP) does not endorse the use of the MDRD equation for patients that are not between the ages of 18 and 70, are , have extremes of body size, muscle mass, or nutritional status, or are non- or non-. According to the National Kidney Foundation, irrespective of diagnosis, the stage of the disease is based on the level of kidney function: Stage Description GFR(mL/min/1.73 m(2)) 1 Kidney damage with normal or decreased GFR 90 2 Kidney damage with mild decrease in GFR 60-89 3 Moderate decrease in GFR 30-59 4 Severe decrease in GFR 15-29 5 Kidney failure <15 (or dialysis) 32 FASTING 33 FASTING 34 Please note: The following may produce a false positive D Dimer test: - Rheumatoid factor greater than 60 IU/ml - Plasma hemoglobin greater than 0.05 gm/dl - Bilirubin greater than 50 mg/dl - Lipids greater than 1000 mg/dl - FDP greater than 20 ug/ml 35 FASTING 36 FASTING 37 Because ethnic data is not always readily available, this report includes an eGFR for both -Americans and non- Americans. The National Kidney Disease Education Program (NKDEP) does not endorse the use of the MDRD equation for patients that are not between the ages of 18 and 70, are , have extremes of body size, muscle mass, or nutritional status, or are non- or non-. According to the National Kidney Foundation, irrespective of diagnosis, the stage of the disease is based on the level of kidney function: Stage Description GFR(mL/min/1.73 m(2)) 1 Kidney damage with normal or decreased GFR 90 2 Kidney damage with mild decrease in GFR 60-89 3 Moderate decrease in GFR 30-59 4 Severe decrease in GFR 15-29 5 Kidney failure <15 (or dialysis) 38 >100 to <200 pg/mL: likely compensated congestive heart failure (CHF) 200 to 400 pg/mL: likely moderate CHF >400 pg/mL: likely moderate to severe CHF 39 FASTING 40 Because ethnic data is not always readily available, this report includes an eGFR for both -Americans and non- Americans. The National Kidney Disease Education Program (NKDEP) does not endorse the use of the MDRD equation for patients that are not between the ages of 18 and 70, are , have extremes of body size, muscle mass, or nutritional status, or are non- or non-. According to the National Kidney Foundation, irrespective of diagnosis, the stage of the disease is based on the level of kidney function: Stage Description GFR(mL/min/1.73 m(2)) 1 Kidney damage with normal or decreased GFR 90 2 Kidney damage with mild decrease in GFR 60-89 3 Moderate decrease in GFR 30-59 4 Severe decrease in GFR 15-29 5 Kidney failure <15 (or dialysis) 41 Because ethnic data is not always readily available, this report includes an eGFR for both -Americans and non- Americans. The National Kidney Disease Education Program (NKDEP) does not endorse the use of the MDRD equation for patients that are not between the ages of 18 and 70, are , have extremes of body size, muscle mass, or nutritional status, or are non- or non-. According to the National Kidney Foundation, irrespective of diagnosis, the stage of the disease is based on the level of kidney function: Stage Description GFR(mL/min/1.73 m(2)) 1 Kidney damage with normal or decreased GFR 90 2 Kidney damage with mild decrease in GFR 60-89 3 Moderate decrease in GFR 30-59 4 Severe decrease in GFR 15-29 5 Kidney failure <15 (or dialysis) 42 Test Performed by: [address] [address] [address] [employer]: Kodi Zayas II, M.D., Ph.D. 43 No bands detected 44 No bands detected 45 Specific serologic response to B. burgdorferi infection is not detected, but cannot rule out early infection during which low or undetectable antibody levels to B. burgdorferi may be present. If clinically indicated, a new serum specimen should be submitted in 7-14 days. ADDITIONAL INFORMATION CDC criteria require >=5 bands for IgG or >=2 bands for IgM for the Immunoblot to be considered positive. Bands (e.g.,p41) may be detected in patients without Lyme disease, and patterns not meeting the CDC criteria should be interpreted with caution. Immunoblot should be ordered only on specimens that are positive or equivocal by a FDA-licensed Lyme disease antibody screening test (e.g., EIA). Test Performed by: [place] [address] Road [employer]: Kodi Zayas II, M.D., Ph.D. 46 Because ethnic data is not always readily available, this report includes an eGFR for both -Americans and non- Americans. The National Kidney Disease Education Program (NKDEP) does not endorse the use of the MDRD equation for patients that are not between the ages of 18 and 70, are , have extremes of body size, muscle mass, or nutritional status, or are non- or non-. According to the National Kidney Foundation, irrespective of diagnosis, the stage of the disease is based on the level of kidney function: Stage Description GFR(mL/min/1.73 m(2)) 1 Kidney damage with normal or decreased GFR 90 2 Kidney damage with mild decrease in GFR 60-89 3 Moderate decrease in GFR 30-59 4 Severe decrease in GFR 15-29 5 Kidney failure <15 (or dialysis) 47 AA SURGERY 07/12/14 48 RUN DATE: 07/02/14 [facility] LIVE PAGE 1 RUN TIME: [phone] [place], [place] [address] Specimen Inquiry Name: Christopher MATIAS : [address]: Nola Rolle MD Acct: [id number] Unit: [id number] AGE: 63 Location: PAT Re06/30/14 SEX: F Status: REG REF SPEC: [id number] GAYLE: 06/30/14-[address]: Nola Rolle MD REQ: [id number] RECD: 06/30/14 STATUS: COMP _ SOURCE: URINE SPDESC: ORDERED: Urine Culture COMMENTS: AA SURGERY 07/12/14 Procedure Result Verified Site Urine Culture Final 07/02/14- 0957 ML Organism 1 STREP GROUP B Doran Count 25-50,000 (Moderate) CFU/ML Susceptibility testing of penicillins and other B-lactams approved by FDA for treatment of Streptococcus pyogenes (Group A Strep) and Streptococcus agalactiae (Group B Strep) is not necessary for clinical purposes and need not be done routinely, since as with vancomycin, resistant strains have not been recognized. (CLSI P082-U32;p.66) Positive isolates will be saved for one week. Please call the Microbiology Laboratory if further susceptibility testing is needed. END OF REPORT * ML=Testing performed at Main Lab DEPARTMENT OF PATHOLOGY, [address] [place] [address] Levy Elizabeth M.D. Director [facility] # [id number] 49 Because ethnic data is not always readily available, this report includes an eGFR for both -Americans and non- Americans. The National Kidney Disease Education Program (NKDEP) does not endorse the use of the MDRD equation for patients that are not between the ages of 18 and 70, are , have extremes of body size, muscle mass, or nutritional status, or are non- or non-. According to the National Kidney Foundation, irrespective of diagnosis, the stage of the disease is based on the level of kidney function: Stage Description GFR(mL/min/1.73 m(2)) 1 Kidney damage with normal or decreased GFR 90 2 Kidney damage with mild decrease in GFR 60-89 3 Moderate decrease in GFR 30-59 4 Severe decrease in GFR 15-29 5 Kidney failure <15 (or dialysis) 50 AA SURGERY 07/12/14 51 Please note: Effective June 22, 2014, the reference value for this test has changed due to the validation and activation of a new reagent lot number. 52 Because ethnic data is not always readily available, this report includes an eGFR for both -Americans and non- Americans. The National Kidney Disease Education Program (NKDEP) does not endorse the use of the MDRD equation for patients that are not between the ages of 18 and 70, are , have extremes of body size, muscle mass, or nutritional status, or are non- or non-. According to the National Kidney Foundation, irrespective of diagnosis, the stage of the disease is based on the level of kidney function: Stage Description GFR(mL/min/1.73 m(2)) 1 Kidney damage with normal or decreased GFR 90 2 Kidney damage with mild decrease in GFR 60-89 3 Moderate decrease in GFR 30-59 4 Severe decrease in GFR 15-29 5 Kidney failure <15 (or dialysis) 53 Desirable <150 Borderline high 150-199 High 200-499 Very High >500 54 Desirable <200 Borderline high 200-239 High >239 55 Low <40 Desirable: 40-60 High: >60 56 Desirable <100 Near Optimal 100-129 Borderline high 130-159 High 160-189 Very High >189 57 ADD ON TEST 58 Therapeutic target for the treatment of diabetes Mellitus patients is <7% HBA1C, and in selective patients <6.0%.Please refer to [place] [employer] Diabetic care guidelines for further information. 59 Desirable <150 Borderline high 150-199 High 200-499 Very High >500 60 Desirable <200 Borderline high 200-239 High >239 61 Low <40 Desirable: 40-60 High: >60 62 Desirable <100 Near Optimal 100-129 Borderline high 130-159 High 160-189 Very High >189 63 Because ethnic data is not always readily available, this report includes an eGFR for both -Americans and non- Americans. The National Kidney Disease Education Program (NKDEP) does not endorse the use of the MDRD equation for patients that are not between the ages of 18 and 70, are , have extremes of body size, muscle mass, or nutritional status, or are non- or non-. According to the National Kidney Foundation, irrespective of diagnosis, the stage of the disease is based on the level of kidney function: Stage Description GFR(mL/min/1.73 m(2)) 1 Kidney damage with normal or decreased GFR 90 2 Kidney damage with mild decrease in GFR 60-89 3 Moderate decrease in GFR 30-59 4 Severe decrease in GFR 15-29 5 Kidney failure <15 (or dialysis) 64 ADD ON TEST 65 FASTING 66 FASTING 67 Because ethnic data is not always readily available, this report includes an eGFR for both -Americans and non- Americans. The National Kidney Disease Education Program (NKDEP) does not endorse the use of the MDRD equation for patients that are not between the ages of 18 and 70, are , have extremes of body size, muscle mass, or nutritional status, or are non- or non-. According to the National Kidney Foundation, irrespective of diagnosis, the stage of the disease is based on the level of kidney function: Stage Description GFR(mL/min/1.73 m(2)) 1 Kidney damage with normal or decreased GFR 90 2 Kidney damage with mild decrease in GFR 60-89 3 Moderate decrease in GFR 30-59 4 Severe decrease in GFR 15-29 5 Kidney failure <15 (or dialysis) 68 Desirable <150 Borderline high 150-199 High 200-499 Very High >500 69 Desirable <200 Borderline high 200-239 High >239 70 Low <40 Desirable: 40-60 High: >60 71 Desirable <100 Near Optimal 100-129 Borderline high 130-159 High 160-189 Very High >189 72 Because ethnic data is not always readily available, this report includes an eGFR for both -Americans and non- Americans. The National Kidney Disease Education Program (NKDEP) does not endorse the use of the MDRD equation for patients that are not between the ages of 18 and 70, are , have extremes of body size, muscle mass, or nutritional status, or are non- or non-. According to the National Kidney Foundation, irrespective of diagnosis, the stage of the disease is based on the level of kidney function: Stage Description GFR(mL/min/1.73 m(2)) 1 Kidney damage with normal or decreased GFR 90 2 Kidney damage with mild decrease in GFR 60-89 3 Moderate decrease in GFR 30-59 4 Severe decrease in GFR 15-29 5 Kidney failure <15 (or dialysis) 73 Desirable <150 Borderline high 150-199 High 200-499 Very High >500 74 Desirable <200 Borderline high 200-239 High >239 75 Low <40 Desirable: 40-60 High: >60 76 Desirable <100 Near Optimal 100-129 Borderline high 130-159 High 160-189 Very High >189 77 FASTING 78 Therapeutic target for the treatment of diabetes Mellitus patients is <7% HBA1C, and in selective patients <6.0%.Please refer to [place] [employer] Diabetic care guidelines for further information. 79 Because ethnic data is not always readily available, this report includes an eGFR for both -Americans and non- Americans. The National Kidney Disease Education Program (NKDEP) does not endorse the use of the MDRD equation for patients that are not between the ages of 18 and 70, are , have extremes of body size, muscle mass, or nutritional status, or are non- or non-. According to the National Kidney Foundation, irrespective of diagnosis, the stage of the disease is based on the level of kidney function: Stage Description GFR(mL/min/1.73 m(2)) 1 Kidney damage with normal or decreased GFR 90 2 Kidney damage with mild decrease in GFR 60-89 3 Moderate decrease in GFR 30-59 4 Severe decrease in GFR 15-29 5 Kidney failure <15 (or dialysis) 80 Reference Range and Interpretation: TnI (ng/mL) Interpretation Less Than 0.03 ng/mL Not supportive of diagnosis of [place] 0.03 - 0.50 ng/mL Indeterminate: suggest serial studies if clinically indicated. Greater than 0.5 ng/mL Consistent with diagnosis of [place] 81 Please note: The following may produce a false positive D Dimer test: - Rheumatoid factor greater than 60 IU/ml - Plasma hemoglobin greater than 0.05 gm/dl - Bilirubin greater than 50 mg/dl - Lipids greater than 1000 mg/dl - FDP greater than 20 ug/ml 82 Because ethnic data is not always readily available, this report includes an eGFR for both -Americans and non- Americans. The National Kidney Disease Education Program (NKDEP) does not endorse the use of the MDRD equation for patients that are not between the ages of 18 and 70, are , have extremes of body size, muscle mass, or nutritional status, or are non- or non-. According to the National Kidney Foundation, irrespective of diagnosis, the stage of the disease is based on the level of kidney function: Stage Description GFR(mL/min/1.73 m(2)) 1 Kidney damage with normal or decreased GFR 90 2 Kidney damage with mild decrease in GFR 60-89 3 Moderate decrease in GFR 30-59 4 Severe decrease in GFR 15-29 5 Kidney failure <15 (or dialysis) 83 HDL Interpretation: Undesirable: High Risk: Less than 40 mg/dL Desirable: Low Risk: Greater than 60 mg/dL 84 LDL Interpretation: Low Risk Optimal Level: LDL Less than 100 mg/dL Near or Above Optimal: LDL 100-129 mg/dL Borderline High Risk: LDL 130-159 mg/dL High Risk: LDL 160-189 mg/dL Very High Risk: LDL Greater than 189 mg/dL 85 Therapeutic target for the treatment of diabetes Mellitus patients is <7% HBA1C, and in selective patients <6.0%.Please refer to [place] [employer] Diabetic care guidelines for further information. 86 Fasting 87 Because ethnic data is not always readily available, this report includes an eGFR for both -Americans and non- Americans. The National Kidney Disease Education Program (NKDEP) does not endorse the use of the MDRD equation for patients that are not between the ages of 18 and 70, are , have extremes of body size, muscle mass, or nutritional status, or are non- or non-. According to the National Kidney Foundation, irrespective of diagnosis, the stage of the disease is based on the level of kidney function: Stage Description GFR(mL/min/1.73 m(2)) 1 Kidney damage with normal or decreased GFR 90 2 Kidney damage with mild decrease in GFR 60-89 3 Moderate decrease in GFR 30-59 4 Severe decrease in GFR 15-29 5 Kidney failure <15 (or dialysis) 88 Therapeutic target for the treatment of diabetes Mellitus patients is <7% HBA1C, and in selective patients <6.0%.Please refer to [place] [employer] Diabetic care guidelines for further information. 89 FASTING 90 Fasting 91 HDL Interpretation: Undesirable: High Risk: Less than 40 mg/dL Desirable: Low Risk: Greater than 60 mg/dL 92 LDL Interpretation: Low Risk Optimal Level: LDL Less than 100 mg/dL Near or Above Optimal: LDL 100-129 mg/dL Borderline High Risk: LDL 130-159 mg/dL High Risk: LDL 160-189 mg/dL Very High Risk: LDL Greater than 189 mg/dL 93 Because ethnic data is not always readily available, this report includes an eGFR for both -Americans and non- Americans. The National Kidney Disease Education Program (NKDEP) does not endorse the use of the MDRD equation for patients that are not between the ages of 18 and 70, are , have extremes of body size, muscle mass, or nutritional status, or are non- or non-. According to the National Kidney Foundation, irrespective of diagnosis, the stage of the disease is based on the level of kidney function: Stage Description GFR(mL/min/1.73 m(2)) 1 Kidney damage with normal or decreased GFR 90 2 Kidney damage with mild decrease in GFR 60-89 3 Moderate decrease in GFR 30-59 4 Severe decrease in GFR 15-29 5 Kidney failure <15 (or dialysis) 94 CKMB interpretation should be made in conjunction with clinical symptoms, patient history and EKG changes. 95 Reference Range and Interpretation: TnI (ng/ml) Interpretation Less Than 0.06 ng/mL Not supportive of diagnosis of [place] 0.06 - 0.50 ng/ml Indeterminate: suggest serial studies if clinically indicated. Greater than 0.5 ng/mL Consistent with diagnosis of [place] 96 Because ethnic data is not always readily available, this report includes an eGFR for both -Americans and non- Americans. The National Kidney Disease Education Program (NKDEP) does not endorse the use of the MDRD equation for patients that are not between the ages of 18 and 70, are , have extremes of body size, muscle mass, or nutritional status, or are non- or non-. According to the National Kidney Foundation, irrespective of diagnosis, the stage of the disease is based on the level of kidney function: Stage Description GFR(mL/min/1.73 m(2)) 1 Kidney damage with normal or decreased GFR 90 2 Kidney damage with mild decrease in GFR 60-89 3 Moderate decrease in GFR 30-59 4 Severe decrease in GFR 15-29 5 Kidney failure <15 (or dialysis) 97 The INR(International Normalized Ratio) was adopted by the World Health Organization (WHO) in 1983 as a standardized system of reporting PT (Prothrombin Time). The Centers for Disease Control (CDC) states that reporting of PT results in INR only is the preferred method. Recommended INR for Patients on Oral Anticoagulants Prophylaxis 2.0 - 3.0 Treatment of thrombosis 2.0 - 3.0 Prevention of embolism 2.0 - 3.0 Prevention of embolism from prosthetic heart valves 2.5 - 3.5 98 Because ethnic data is not always readily available, this report includes an eGFR for both -Americans and non- Americans. The National Kidney Disease Education Program (NKDEP) does not endorse the use of the MDRD equation for patients that are not between the ages of 18 and 70, are , have extremes of body size, muscle mass, or nutritional status, or are non- or non-. According to the National Kidney Foundation, irrespective of diagnosis, the stage of the disease is based on the level of kidney function: Stage Description GFR(mL/min/1.73 m(2)) 1 Kidney damage with normal or decreased GFR 90 2 Kidney damage with mild decrease in GFR 60-89 3 Moderate decrease in GFR 30-59 4 Severe decrease in GFR 15-29 5 Kidney failure <15 (or dialysis) 99 HDL Interpretation: Undesirable: High Risk: Less than 40 MG/DL Desirable: Low Risk: Greater than 60 MG/DL 100 LDL Interpretation: Low Risk Optimal Level: LDL Less than 100 MG/DL Near or Above Optimal: LDL 100-129 MG/DL Borderline High Risk: LDL 130-159 MG/DL High Risk: LDL 160-189 MG/DL Very High Risk: LDL Greater than 189 MG/DL 101 Therapeutic target for the treatment of diabetes Mellitus patients is <7% HBA1C, and in selective patients <6.0%.Please refer to [place] [employer] Diabetic care guidelines for further information. 102 Fasting Procedures Date CPT Code Description Status 01/28/2018 55472 EKG Tracing & Interpretation Completed 09/15/2017 39737 ECHO Transthoracic, Real-Time 2D With Doppler And Color Completed Flow 09/15/2017 29806 ECHO Transthoracic, Real-Time 2D With Doppler And Color Completed Flow 08/19/2017 30779 Polysomnography Sleep Staging 4+ Parameters Completed 07/31/2017 08078 Diffusing Capacity Completed 07/31/2017 85844 Plethysmography Determination Lung Volumes & Per Airway Completed Resist 07/31/2017 95002 Pulmonary Function><Bronchodil Completed 07/21/2017 35908 EKG Tracing & Interpretation Completed 03/17/2017 23342 EKG, Interpretation Only Completed 01/07/2017 22857 EKG Tracing & Interpretation Completed 12/17/2016 48591 EKG Tracing & Interpretation Completed 09/25/2016 59627 ECHO Transthoracic, Real-Time 2D With Doppler And Color Completed Flow 08/01/2016 76776 Mobile Cardiovascular Telemetry Over 24 HR Up To 30 Completed Days 07/26/2016 69473 Holter Monitor Review (24 hr)dr review & interp only Completed 07/24/2016 18940 ECG Monitor/Recording W/Visual Superimposition Scanning Completed 07/01/2016 26708 EKG Tracing & Interpretation Completed 04/03/2016 07631 EKG Tracing & Interpretation Completed 03/28/2016 07435 ECHO Transthoracic, Real-Time 2D With Doppler And Color Completed Flow 03/14/2016 68962 Holter Monitor Review (24 hr)dr review & interp only Completed 03/12/2016 00905 ECG Monitor/Recording W/Visual Superimposition Scanning Completed 03/08/2016 48582 Transesophageal Echocardiogram Completed 03/06/2016 09263 EKG Tracing & Interpretation Completed 03/01/2016 70272 Echocardiogram, Limited Study Completed 03/01/2016 46596 EKG Tracing & Interpretation Completed 02/27/2016 87703 Holter Monitor Review (24 hr)dr review & interp only Completed 02/26/2016 73145 ECG Monitor/Recording W/Visual Superimposition Scanning Completed 02/15/2016 36336 EKG Tracing & Interpretation Completed 01/25/2016 17152 ECHO Stress Test Incl Perf Contiuous ekg Monitoring Completed W/Phys Superv 01/25/2016 77140 ECHO Stress Test Incl Perf Contiuous ekg Monitoring Completed W/Phys Superv 01/12/2016 65941 Color Flow Doppler/Interp & Reprt Completed 01/12/2016 29882 Pulse Wave/Continuous-Interp.RPT Completed 01/12/2016 14386 Echocardiography, Transesophageal, Real Time W/Image 2D Completed W/W/O M-M 12/27/2015 19822 EKG Tracing & Interpretation Completed 11/23/2015 65515 Treadmill Interp/Report Only Completed 11/23/2015 65990 Stress Test Supervsn W/Out I/R Completed 11/23/2015 25465 EKG, Interpretation Only Completed 11/01/2015 34034 Holter Monitor Review (24 hr)dr review & interp only Completed 10/31/2015 77067 ECG Monitor/Recording W/Visual Superimposition Scanning Completed 10/25/2015 03259 Inject/Drain Joint/Bursa Major W/O US Completed 10/13/2015 71579 EKG Tracing & Interpretation Completed 10/05/2015 03766 ECHO Transthoracic, Real-Time 2D With Doppler And Color Completed Flow 10/04/2015 93787 EKG Tracing & Interpretation Completed 08/31/2015 13502 EKG Tracing & Interpretation Completed 05/04/2015 67602 ECHO Stress Test Incl Perf Contiuous ekg Monitoring Completed W/Phys Superv 05/04/2015 34043 ECHO Stress Test Incl Perf Contiuous ekg Monitoring Completed W/Phys Superv 04/12/2015 82729 EKG Tracing & Interpretation Completed 02/03/2015 39825 Inject/Drain Joint/Bursa Major W/O US Completed 10/10/2014 86136 Inject/Drain Joint/Bursa Major W/O US Completed 07/16/2014 86383 ORIF Open TX Distal Fibular FX Incl Internal Fixation Completed When Perfom 07/16/2014 56284 ORIF Open TX Distal Fibular FX Incl Internal Fixation Completed When Perfom 07/16/2014 31363 EKG, Interpretation Only Completed 07/13/2014 78277 EKG, Interpretation Only Completed 07/12/2014 67640 EKG, Interpretation Only Completed 07/12/2014 31043 TKR Total Knee Replacement Completed 07/12/2014 09357 TKR Total Knee Replacement Completed 06/09/2014 21454 Holter Monitor Review (24 hr)dr review & interp only Completed 06/09/2014 11975 ECG Monitor/Recording W/Visual Superimposition Scanning Completed 05/31/2014 66818 ECHO Transthoracic, Real-Time 2D With Doppler And Color Completed Flow 05/11/2014 41543 EKG Tracing & Interpretation Completed 03/28/2014 80361 Inject/Drain Joint/Bursa Major W/O US Completed 03/28/2014 86674 Xray Knee 3 Views Completed 03/28/2014 71580 Xray Knee 3 Views Completed 02/28/2014 94064 Short Arm Splint Application Completed 02/28/2014 01324 Closed Treatment Radial Head Or Neck FX W/O Completed Manipulation 02/28/2014 78191 Closed Treatment Radial Head Or Neck FX W/O Completed Manipulation 02/17/201417159 Inject/Drain Joint/Bursa Major W/O US Completed 02/10/201464584 Inject/Drain Joint/Bursa Major W/O US Completed 02/03/201477631 Inject/Drain Joint/Bursa Major W/O US Completed 10/29/2013 36239 EKG Tracing & Interpretation Completed 09/09/201386594 Inject/Drain Joint/Bursa Major W/O US Completed 09/09/201339953 Inject/Drain Joint/Bursa Major W/O US Completed 09/09/2013 16959 Xray Knee 3 Views Completed 09/09/2013 18244 Xray Knee 3 Views Completed 07/05/2013 22496 EKG Tracing & Interpretation Completed 06/03/2013 84154 EKG Tracing & Interpretation Completed 03/30/201349917 Inject/Drain Joint/Bursa Major W/O US Completed 03/30/201345856 Inject/Drain Joint/Bursa Major W/O US Completed 01/11/2013 60644 EKG Tracing & Interpretation Completed 10/29/2012 24578 Xray Knee 3 Views Completed 10/29/2012 62222 Rad Exam; Knee, Ap&L Completed 10/29/201287060 Inject/Drain Joint/Bursa Major W/O US Completed 09/22/2012 72302 ECHO Transthoracic, Real-Time 2D With Doppler And Color Completed Flow 09/17/2012 47381 EKG Tracing & Interpretation Completed 09/10/2012 22221 EKG Tracing & Interpretation Completed 07/15/2012 84893 EKG, Interpretation Only Completed 07/13/2012 81669 EKG Tracing & Interpretation Completed 06/24/2012 33326 EKG, Interpretation Only Completed 06/23/2012 50097 EKG, Interpretation Only Completed 06/01/2012 08415 EKG Tracing & Interpretation Completed 12/30/2011 37923 EKG, Interpretation Only Completed 12/30/2011 41309 EKG Tracing & Interpretation Completed 11/29/2011 28947 ECHO Stress Test Incl Perf Contiuous ekg Monitoring Completed W/Phys Superv 11/29/2011 84128 ECHO Stress Test Incl Perf Contiuous ekg Monitoring Completed W/Phys Superv 11/28/2011 80601 EKG Tracing & Interpretation Completed 11/12/2004 55200 ECHO/Stress Completed 11/12/2004 54094 Stress Test Completed Encounters Type Date Location Provider CPT E/M Dx Office Visit 11/17/2017 [facility] Desi Kim, 51235 R06.2 11:00a [facility] N.P. R05 G47.33 Office Visit 08/29/2017 10:15a [facility] [place] [address] J45.909 [facility] G47.33 K21.9 G25.81 I27.20 E66.09 D64.9 Office Visit 07/26/2017 8:00a [facility] [place] [address] R05 [facility] J45.909 R06.83 E66.09 K21.9 R06.2 Office Visit 07/21/2017 10:20a [facility] Watson Jenkins M.D. 98104 I47.9 E11.9 I44.7 I10 E78.00 I27.20 I25.10 I34.0 Office Visit 01/07/2017 9:30a [facility] CAROLE Smart 33766 I10 I44.7 I34.0 R07.9 Office Visit 12/17/2016 9:20a [facility] Watson Jenkins M.D. 28852 I47.9 I10 I34.0 E11.9 Office Visit 09/19/2016 9:45a [facility] CAROLE Smart 50822 I34.0 R06.02 I47.9 Office Visit 07/01/2016 1:40p [facility] Watson Jenkins M.D. 82500 I10 I42.9 I34.0 I48.0 Office Visit 04/22/2016 3:00p [facility] CAROLE Smart 32045 I10 I42.9 I34.0 I48.0 Office Visit 04/05/2016 3:00p [facility] Nurse Visit 39801 I10 Office Visit 04/03/2016 9:00a [facility] Watson Jenkins M.D. 32519 I42.9 R07.9 R06.02 I34.0 I48.0 I10 Office Visit 03/06/2016 8:30a [facility] CAROLE Smart 28782 I48.92 I48.0 R07.9 I34.0 I42.9 R00.2 Office Visit 03/02/2016 2:06p [facility], Anita Koch, N.P. 75167 I48.92 Hospitalists R06.02 R07.9 Office Visit 03/01/2016 2:05p [facility], Anita Koch, N.P. 98918 I48.92 Hospitalists R06.02 R07.9 Office Visit 03/01/2016 1:20p [facility] Watson Jenkins M.D. 94373 R00.0 R06.02 R07.9 I34.0 I48.92 I44.7 Z98.890 Office Visit 02/15/2016 10:00a [facility] CAROLE Smart 55221 R06.02 I34.0 I48.2 Office Visit 01/25/2016 10:30a [facility] Watson Jenkins, 17202 R06.02 M.DAlan I25.10 I10 R06.00 I48.1 I34.0 Office Visit 12/27/2015 11:00a [facility] CAROLE Smart 64263 I25.10 I10 I48.1 R42 R06.02 Office Visit 12/01/2015 2:45p [facility] Rolle M.D. 07202 M25.562 C.MAlanAAlan M17.12 Z96.651 Office Visit 11/23/2015 12:51p [facility], eRi Chin, 27354 R07.9 Hospitalists Pam I25.10 I10 E11.9 Office Visit 11/22/2015 12[facility] Marcello Bright, 31707 R07.9 Hospitalists N.P. I25.10 I10 E11.9 Office Visit 11/15/2015 3:30p [facility] Rei Chun, 02724 M72.2 C.MTosin Orozco Office Visit 11/13/2015 1:00p [facility] M.D. 56664 M79.672 C.M.AAlan M72.2 Office Visit 11/02/2015 10:30a [facility] CAROLE Smart 01551YFP I48.91 I34.0 I10 R07.9 Office Visit 10/25/2015 1:45p [facility] M.D. 91388 M25.562 C.M.A. M17.12 M25.462 Office Visit 10/19/2015 10:30a [facility] CAROLE Smart 50235 I48.1 I34.0 I10 R07.9 R06.02 I50.9 Office Visit 10/13/2015 10:00a [facility] Nurse Visit 71679 I48.91 Office Visit 10/04/2015 10:30a [facility] CAROLE Smart 75548 I10 R07.9 I20.1 I48.91 Office Visit 08/31/2015 9:20a [facility] Watson Jenkins M.D. 59056 I20.1 R07.9 I10 I49.5 Office Visit 07/21/2015 10:15a [facility] M.D. 82210 Z47.1 C.M.A. Z96.651 M17.12 M25.462 Office Visit 04/12/2015 3:40p [facility] Watson Jenkins M.D. 44402 I49.5 I10 I20.1 Office Visit 01/23/2015 11:15a [facility] M.D. 22550 715.96 C.M.A. 824.8 V67.4 V15.51 V54.81 V43.65 728.85 Office Visit 11/21/2014 11:10a [facility] M.D. 30019 V67.09 C.M.A. 715.96 Office Visit 07/16/2014 9:51a [facility] Watson Jenkins M.D. 58726 413.9 427.89 V72.81 Office Visit 07/16/2014 10:00a [facility], Toi Chapin.P. 08289 427.89 Hospitalists 414.00 786.50 250.00 Office Visit 07/15/2014 9:59a [facility],pc Toi Chapin.P. 59306 427.89 Hospitalists 786.50 414.00 250.00 Office Visit 07/14/2014 9:59a [facility],pc Anita Koch N.P. 27743 427.89 Hospitalists 414.00 786.50 250.00 Office Visit 07/14/2014 2:21p [facility] Divya Baxter M.D. 09900 414.9 Addiction Nurse Office Visit 07/13/2014 9:58a [facility], Desi Kim, 93697 427.89 Hospitalists N.P. 414.00 786.50 250.00 Office Visit 07/13/2014 8:56a [facility] Watson Jenkins M.D. 40631 413.9 414.9 427.89 Office Visit 07/12/2014 9:57a [facility] Marcello Bright, 04858 427.89 Assoc, Hospitalists N.P. 414.00 786.50 250.00 Office Visit 07/12/2014 2:42p [facility] Horace Macdonald, 50586 413.1 [facility] Pma, [facility] 786.50 427.89 Office Visit 06/13/2014 9:30a [facility] M.D. 96393 715.16 C.M.A. Office Visit 05/11/2014 3:40p [facility] Watson Jenkins, 58067 413.1 Pam 414.01 250.00 401.9 424.0 Office Visit 04/28/2014 9:00a [facility] M.D. 90497 715.16 C.M.A. Office Visit 03/28/2014 8:15a [facility] Bruce Junior M.D. 29793 715.16 C.M.A. 715.32 813.05 Office Visit 01/25/2014 11:45a [facility] Bruce Junior M.D. 61415 715.16 C.M.A. Office Visit 10/29/2013 9:00a [facility] Watson Jenkins, 72733 413.1 M.D. 786.50 Office Visit 09/09/2013 1:45p [facility] Bruce Junior M.D. 25365 719.46 C.M.A. 715.96 Office Visit 07/05/2013 9:40a [facility] Watson Jenkins M.D. 18737 413.1 427.81 780.79 424.1 Office Visit 06/03/2013 9:20a [facility] Watson Jenkins M.D. 07542 413.1 424.0 427.81 780.4 Office Visit 06/01/2013 8:30a [facility] Morrow RPA-Isabel 88382 715.96 C.M.A. Office Visit 03/30/2013 1:45p [facility] Morrow RPA-Isabel 39460 C.M.A. Office Visit 01/11/2013 3:00p [facility] Watson Jenkins 75288 424.0 M.DAlan 413.1 794.31 Office Visit 11/27/2012 11:15a [facility] Mororw 11140 715.96 C.M.A. RPA-C Office Visit 10/29/2012 10:15a [facility] Bruce Junior M.D. 37485 715.96 C.M.A. 719.06 Office Visit 09/17/2012 4:00p [facility] [place] [address] 426.3 401.9 Office Visit 09/10/2012 10:00a [facility] Watson Jenkins M.D. 16283 413.1 401.9 426.3 Office Visit 07/13/2012 3:40p [facility] Watson Jenkins M.D. 20367 413.1 427.69 401.9 Office Visit 06/24/2012 3:34p [facility] Devi Bhatt, 44012 786.51 Hospitalists D.O. 401.9 244.9 250.00 Office Visit 06/24/2012 1:14p [facility] Watson Jenkins, 79217 786.50 M.DAlan 413.1 427.69 Office Visit 06/23/2012 3:33p [facility], Devi Bhatt, 95839 786.51 Hospitalists D.O. 401.9 244.9 250.00 Office Visit 06/01/2012 1:40p [facility] Watson Jenkins M.D. 72553 401.1 414.0 794.31 786.50 Office Visit 12/30/2011 1:30p [facility] AT [facility], 40195 786.50 [facility] N.P. 401.1 Office Visit 11/29/2011 1:30p [facility] Watson Jenkins M.D. 50046 414.0 401.1 786.50 794.31 Office Visit 11/28/2011 1:30p [facility] AT Watson Jenkins, 36431 786.50 [facility] MAlanDAlan 794.31 401.1 414.0 Plan of Care Future Appointment(s):02/06/2018 9:30 am - Watson Jenkins M.D. at [facility]02/17/2018 10:45 am - Rachele Alba MD at [facility]01/28/2018 - Desi Kim, N.P.Z01.810 Encounter for preprocedural cardiovascular examinationNew Orders:Stress Test, Exercise GvzosloU31.00 Pure hypercholesterolemia, wmhfezpaurcH76.31 Abnormal electrocardiogram [ECG] [EKG]I44.7 Left bundle-branch block, [id number] Essential (primary) hypertensionFollow up:LORI Jenkins 06/2018Recommendations: DECREASE irbesartan to 75mg in the AM Call in 1 week with BPs to see if improved
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
[2018-02-08] MEDS ORDERED: Sucralfate TAB* 1 GM PO ONE (10:49)
[2018-02-08 11:04] LABS: ABS Basophils 0.1 10^3/ul (0-0.2); ABS Eosinophils 0.3 10^3/ul (0-0.6); ABS Lymphocytes 1.9 10^3/ul (1.0-4.8); ABS Monocytes 0.5 10^3/ul (0-0.8); ABS Neutrophils 4.1 10^3/ul (1.5-7.7); ABS Nucleated RBC 0 10^3/ul; Eosinophil % 3.8 % (0-6); Hematocrit 38 % (35-47); Hemoglobin 12.8 g/dl (12.0-16.0); Lymphocyte % 27.6 % (25-47); Mean Corpuscular HGB Conc 33 g/dl (31-36); Mean Corpuscular Hemoglobin 30 pg (27-31); Mean Corpuscular Volume 89 fL (80-97); Mean Platelet Volume 7.4 um3 (7.4-10.4); Nucleated Red Blood Cells % 0; Platelet Count 225 10^3/ul (150-450); Red Blood Count 4.31 10^6/ul (4.00-5.40); Red Cell Distribution Width 14 % (10.5-15); White Blood Count 6.7 10^3/ul (3.5-10.8)
[2018-02-08 11:26] LABS: EGFR Non-African American 65.1 (>60)
--- NOTE | 2018-02-08 11:55 | RAD ---
INDICATION: Chest pain COMPARISON: Similar chest x-ray July 07, 2017 TECHNIQUE: Single AP portable view of the chest was obtained. FINDINGS: Image quality is compromised due to the relative inferiority of a portable chest x-ray. Stable postsurgical changes include sternotomy wires and what appears to be a prosthetic mitral valve. The heart and mediastinum exhibit normal size and contour. The lungs are grossly clear. There is no evidence of a large pleural effusion. Visualized bones are normal for the patient's age. IMPRESSION: No radiographic evidence for acute cardiopulmonary abnormality on this portable chest x-ray.
[2018-02-08 15:04] VITALS: BP 134/68
== END 2018-02-08 15:05 | disposition home or self-care (01) ==
LOC: ED 09:05
CPT/HCPCS: 36415; 71045; 80053; 83605; 84484; 85025; 85379; 85610; 93005; A9270-GY

== ENCOUNTER 2019-06-02 06:36 | Day surgery (SDC) | payer MEDICARE, BC ==
[~2019-06-02 06:36] MED LIST: Acetaminophen TAB* 325 MG PO PRN; Buffered Lidocaine 1% SYRIN* 1 ML/SYRINGE INTRADERM ONE
[2019-06-02] MEDS ORDERED: fentaNYL* 50 MCG/ML 2 ML VIAL (100 MCG VIAL) ONE (07:59)
[2019-06-02] MEDS ORDERED: Midazolam* 1 MG/ML 2 ML VIAL (2 MG) ONE ×2 (07:59→08:34)
[2019-06-02 09:17] VITALS: BP 137/61
[2019-06-02] MEDS ORDERED: Proparacaine 0.5% OPHTH.SOL* 15 ML BTL ONE (09:41)
[2019-06-02] MEDS ORDERED: acetaZOLAMIDE TAB* 250 MG ONE (09:41)
[2019-06-02] MEDS ORDERED: Neomycin/Polymy/Dex OPTH.SUSP* MAXITROL 0.1% 5 ML ONE (09:41)
[2019-06-02] MEDS ORDERED: Cyclopentolate 1% OPTH.SOL* 2 ML BTL ONE (09:41)
[2019-06-02] MEDS ORDERED: Lidocaine 2% w/ EPI 1:200,000* 20 ML SDV VIAL ONE (09:41)
[2019-06-02] MEDS ORDERED: Ketorolac 0.5% OPHTH (NF) 0.5 % 5 ML BTL ONE (09:41)
[2019-06-02] MEDS ORDERED: Povidone Iodine 5% OPTH* 30 ML BTL ONE (09:41)
[2019-06-02] MEDS ORDERED: Phenylephrine OPHTH SOL 2.5%* 2 ML ONE (09:41)
[2019-06-02] MEDS ORDERED: Lidocaine 1% MPF ** 5 ML VIAL ONE (09:41)
--- NOTE | 2019-06-02 09:59 | OP ---
OPERATIVE NOTE: DATE OF OPERATION: 06/02/19 DATE OF : 52 SURGEON: Jose Simental M.D. PREOPERATIVE DIAGNOSIS: Cataract, right eye. POSTOPERATIVE DIAGNOSIS: Cataract, right eye. OPERATIVE PROCEDURE: Extracapsular cataract extraction with intraocular lens implant and CTR, right eye. PROCEDURE: The patient was brought to the operating room after being given 1/2% Alcaine with epineph rine drops in the preoperative area. The eye was prepped and draped in the usual sterile fashion. S terile drape and eyelid speculum were placed. Again, topical 1/2% Alcaine with epinephrine was given . A paracentesis incision was made at the 9 o'clock position with the No.75 blade. Clear cornea inc ision 2.2 x 2.2-mm was created at the 12 o'clock position starting at the anterior limbus using the 2 .2-mm keratome. The anterior chamber was irrigated with 0.4 mL of 1% non-preservative intracameral l idocaine and filled with DisCoVisc. A capsulorrhexis was completed using the cystotome and the Utrat a forceps. Hydrodissection was performed with balanced salt solution. The lens nucleus was removed w ith the Phacoemulsification handpiece without incident. Cortex was removed with the irrigation-aspir ation handpiece. The capsular bag was re-inflated using DisCoVisc and an [id number] 18.5 implant was ins erted with the shooter, oriented to the 53-degree axis. Horizontal reference harris were made with th e patient in seated position. All measurements were confirmed with ORA. After insertion of the lens , a capsular tension ring, a CTR10 was inserted. The irrigation-aspiration handpiece was used to rem ove all residual DisCoVisc. The eye was refilled with balanced salt solution and the wound checked a nd found to be watertight. Topical Maxitrol drops were given. Indication for complex cataract surgery: Status post vitrectomy requiring capsular tension device. [id number] #: [id number]
== END 2019-06-02 09:12 | disposition home or self-care (01) ==
LOC: OREAST 06:36
PROVIDERS: ATTEND Specialist
DX: H25.811 Combined forms of age-related cataract, right eye (principal); H33.8 Other retinal detachments; E11.9 Type 2 diabetes mellitus without complications; Z79.84 Long term (current) use of oral hypoglycemic drugs; I10 Essential (primary) hypertension; E03.9 Hypothyroidism, unspecified; K21.9 Gastro-esophageal reflux disease without esophagitis; E78.00 Pure hypercholesterolemia, unspecified; I48.91 Unspecified atrial fibrillation; Z79.01 Long term (current) use of anticoagulants; G25.81 Restless legs syndrome
CPT/HCPCS: A9270-GY; J2250; J3010; V2787

== ENCOUNTER 2019-06-09 06:38 | Day surgery (SDC) | payer MEDICARE, BC ==
[~2019-06-09 06:38] MED LIST changes: -Acetaminophen TAB* 325 MG PO PRN; +Buffered Lidocaine 1% SYRIN 1 ml INTRADERM ONE; -Buffered Lidocaine 1% SYRIN* 1 ML/SYRINGE INTRADERM ONE
[2019-06-09] MEDS ORDERED: Midazolam 5 mg/5 ml VIAL 1 mg/ml 5 ml VIAL (5 mg) ONE (08:02)
[2019-06-09] MEDS ORDERED: fentaNYL 100 mcg/2 ml 50 MCG/ML VIAL ONE (08:02)
[2019-06-09 09:09] VITALS: BP 131/65
[2019-06-09] MEDS ORDERED: Neomycin/Polymy/Dex OPTH.SUSP MAXITROL 0.1% 5 ML ONE (14:56)
[2019-06-09] MEDS ORDERED: Phenylephrine 2.5% OPHTH SOL 2 ml BTL ONE (14:56)
[2019-06-09] MEDS ORDERED: Cyclopentolate 1% OPTH.SOL 2 ML BTL ONE (14:56)
[2019-06-09] MEDS ORDERED: Lidocaine 2% w/ EPI 1:200,000 MPF 20 ML SDV VIAL ONE (14:56)
[2019-06-09] MEDS ORDERED: Povidone Iodine 5% OPTH 30 ML BTL ONE (14:56)
[2019-06-09] MEDS ORDERED: Lidocaine 1% MPF 5 ML VIAL ONE (14:56)
[2019-06-09] MEDS ORDERED: Ketorolac 0.5% OPHTH (NF) 0.5 % 5 ML BTL ONE (14:56)
[2019-06-09] MEDS ORDERED: Proparacaine 0.5% OPHTH.SOL 15 ML BTL ONE (14:57)
== END 2019-06-09 08:42 | disposition home or self-care (01) ==
LOC: OREAST 06:38
PROVIDERS: ATTEND Specialist
DX: H25.812 Combined forms of age-related cataract, left eye (principal); H33.8 Other retinal detachments; H43.812 Vitreous degeneration, left eye; E11.9 Type 2 diabetes mellitus without complications; Z79.84 Long term (current) use of oral hypoglycemic drugs; I10 Essential (primary) hypertension; E03.9 Hypothyroidism, unspecified; K21.9 Gastro-esophageal reflux disease without esophagitis; G25.81 Restless legs syndrome; E78.00 Pure hypercholesterolemia, unspecified; I48.91 Unspecified atrial fibrillation; J45.909 Unspecified asthma, uncomplicated; Z79.01 Long term (current) use of anticoagulants

== ENCOUNTER 2020-07-10 19:58 | Observation (INO) ==
[2020-07-10] MEDS ORDERED: Diltiazem IV push/loading dose 5 MG/ML 5 ML vial (25 mg) IV SLOW PU ONE (20:26)
[2020-07-10 20:35] LABS: ABS Basophils 0.1 10^3/ul (0-0.2); ABS Eosinophils 0.1 10^3/ul (0-0.6); ABS Lymphocytes 2.6 10^3/ul (1.0-4.8); ABS Monocytes 0.9 10^3/ul (0-0.8); ABS Neutrophils 7.1 10^3/ul (1.5-7.7); Eosinophil % 0.9 %; Hematocrit 44 % (35-47); Hemoglobin 15.3 g/dL (12.0-16.0); Lymphocyte % 24.1 %; Mean Corpuscular HGB Conc 34 g/dL (31-36); Mean Corpuscular Hemoglobin 30 pg (27-31); Mean Corpuscular Volume 88 fL (80-97); Mean Platelet Volume 8.1 fL (7.4-10.4); Platelet Count 291 10^3/uL (150-450); Red Blood Count 5.07 10^6 /uL (3.70-4.87); Red Cell Distribution Width 15 % (10-15); White Blood Count 10.8 10^3/uL (3.5-10.8)
[2020-07-10 20:48] LABS: Troponin I 0.01 ng/mL (<0.03)
[2020-07-10 20:54] LABS: Albumin 4.7 g/dL (3.2-5.2); Calcium 9.3 mg/dL (8.6-10.3); Potassium 3.4 mmol/L (3.5-5.0); Total Bilirubin 0.5 mg/dL (0.2-1.0)
[2020-07-10 21:00] LABS: Albumin/Globulin Ratio 1.7 (1-3); EGFR African American 43.7 (>60); EGFR Non-African American 36.1 (>60); Globulin 2.8 g/dL (2-4); Total Protein 7.5 g/dL (6.4-8.9)
[2020-07-10] MEDS ORDERED: Diltiazem (ADVAN VIAL) 100 MG/100 ML ADDV.BAG IV SCH ×2 (21:00→23:00)
[2020-07-10] MEDS ORDERED: NS 0.9% 500 ml BAG 500 ML IV SCH (23:00)
[2020-07-10 23:24] LABS: TSH Ultra Thyroid Stim Horm 2.58 mcIU/mL (0.34-5.60)
[2020-07-10] MEDS ORDERED: Albuterol 2.5mg/3 ml (0.083%) NEB.SOLN INH PRN (23:38)
[2020-07-10] MEDS ORDERED: oxyCODONE/Acetamin 5/325 mg TAB PO PRN (23:41)
[2020-07-10 23:45] LABS: Magnesium 1.6 mg/dL (1.9-2.7)
[2020-07-10] MEDS ORDERED: Albuterol HFA INHALER 8 gm MDI INH PRN (23:50)
[2020-07-11] MEDS ORDERED: Magnesium Sulfate IV 3 GM in NS 0.9% 100 ml BAG 100 ML IVPB ONE (00:21)
[2020-07-11 00:59] LABS: Troponin I 0.03 ng/mL (<0.03)
[2020-07-11] MEDS: Potassium Chlor 20 meq TAB.ER PO SCH ×3 (01:22→08:08)
[2020-07-11 03:58] LABS: Troponin I 0.03 ng/mL (<0.03)
[2020-07-11 07:01] LABS: Calcium 9.1 mg/dL (8.6-10.3); Magnesium 2.7 mg/dL (1.9-2.7)
[2020-07-11 07:06] LABS: EGFR African American 58.4 (>60); EGFR Non-African American 48.2 (>60)
[2020-07-11] MEDS: Cholecalciferol (VIT D3) 1,000 unit TAB PO SCH (08:07)
[2020-07-11] MEDS: Aspirin EC 81 mg TAB.EC (enteric coated) PO SCH (08:08)
[2020-07-11] MEDS: Mometasone/Formoter 200/5 MDI INH SCH ×2 (08:14→20:00)
[2020-07-11] MEDS: Empaglifozin 10 mg TAB (NF) PO SCH (08:26)
[2020-07-12 05:05] LABS: BUN/Creatinine Ratio 19.4 (8-20); Potassium 3.7 mmol/L (3.5-5.0)
[2020-07-12 05:06] LABS: Calcium 8.8 mg/dL (8.6-10.3); EGFR African American 68.1 (>60); EGFR Non-African American 56.3 (>60)
[2020-07-12] MEDS: Mometasone/Formoter 200/5 MDI INH SCH ×2 (07:17→20:07)
[2020-07-12] MEDS: Aspirin EC 81 mg TAB.EC (enteric coated) PO SCH (09:46)
[2020-07-12] MEDS: Cholecalciferol (VIT D3) 1,000 unit TAB PO SCH (09:46)
[2020-07-12] MEDS: Empaglifozin 10 mg TAB (NF) PO SCH (09:50)
[2020-07-13] MEDS: Mometasone/Formoter 200/5 MDI INH SCH (07:43)
[2020-07-13] MEDS: Aspirin EC 81 mg TAB.EC (enteric coated) PO SCH (08:53)
[2020-07-13] MEDS: Cholecalciferol (VIT D3) 1,000 unit TAB PO SCH (08:53)
[2020-07-13] MEDS: Empaglifozin 10 mg TAB (NF) PO SCH (08:54)
[2020-07-13] MEDS ORDERED: Potassium Chlor 20 meq TAB.ER PO SCH (09:00)
[2020-07-13 13:03] VITALS: BP 102/58
== END 2020-07-13 15:45 | disposition home or self-care (01) ==
LOC: MEDTELE 19:58 → ED 19:58 → MEDTELE 07-11
PROVIDERS: ADMIT Student in an Organized Health Care Education/Training Program; ATTEND Internal Medicine